=== PATIENT | female | born 1935 | race Caucasian/White ===

== ENCOUNTER 2020-12-25 10:39 | Outpatient (REF) | payer MEDICARE, MEDICAID, SELFPAY ==
--- NOTE | 2020-12-25 | XR_ITS ---
EXAMINATION: XR HIP, RIGHT XR HIP, LEFT CLINICAL INFORMATION: Bilateral hip pain COMPARISON: None TECHNIQUE: Each hip is imaged in AP and frog-lateral projections. There are total of 4 views. FINDINGS: Right: No fracture, dislocation, destructive process. There is some borderline spurring from the acetabulum but no focal joint narrowing or erosive change. No visible chondrocalcinosis. Visualized bony pelvis unremarkable. Left: No fracture, dislocation, destructive process. There is some borderline spurring from the acetabulum but no focal joint narrowing or erosive change. No visible chondrocalcinosis. Visualized bony pelvis unremarkable. XR/XR hip LT min 2V IMPRESSION: Mild bilateral acetabular spurring. No focal joint narrowing or erosive change.
--- NOTE | 2020-12-25 | XR_ITS ---
EXAMINATION: XR HIP, RIGHT XR HIP, LEFT CLINICAL INFORMATION: Bilateral hip pain COMPARISON: None TECHNIQUE: Each hip is imaged in AP and frog-lateral projections. There are total of 4 views. FINDINGS: Right: No fracture, dislocation, destructive process. There is some borderline spurring from the acetabulum but no focal joint narrowing or erosive change. No visible chondrocalcinosis. Visualized bony pelvis unremarkable. Left: No fracture, dislocation, destructive process. There is some borderline spurring from the acetabulum but no focal joint narrowing or erosive change. No visible chondrocalcinosis. Visualized bony pelvis unremarkable. XR/XR hip RT min 2V IMPRESSION: Mild bilateral acetabular spurring. No focal joint narrowing or erosive change.
== END 2020-12-25 10:40 | disposition home or self-care (01) ==
LOC: HO.XRAY 10:39
PROVIDERS: PCP Internal Medicine; Visit Provider Internal Medicine
DX: M25.552 Pain in left hip (principal); M25.551 Pain in right hip
CPT/HCPCS: 73502

== ENCOUNTER 2021-06-30 14:35 | Emergency (ER) | payer MEDICARE, MEDICAID, SELFPAY ==
--- NOTE | ~2021-06-30 | XR_ITS ---
EXAMINATION: XR CHEST CLINICAL INFORMATION: COVID pneumonia. Question left lower lobe. COMPARISON: 03/07/2019 TECHNIQUE: Frontal view of the chest was obtained. FINDINGS: Again seen is a large hiatal hernia which occupies much of the left lower hemithorax at the left lung base. Surrounding atelectasis is suspected. Sensitivity for superimposed consolidation in this region is limited. Additional atelectasis is present at the right lung base. No appreciable pneumothorax or pleural effusion. Cardiac and mediastinal contours are unchanged. 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 Chronic coarse mineralized densities are present in the upper abdomen, unchanged from prior. XR/XR chest 1V IMPRESSION: As in the prior study, the presence of a large hiatal hernia occupying the left hemithorax inferiorly limits assessment of the left lower lobe which is likely atelectatic at the base. Sensitivity for consolidation in this region is limited. No separate areas of consolidation. Additional atelectasis is present at the right lung base.
[2021-06-30 16:03] VITALS: BP 137/80; PULSE 105; RESP 18; TEMP 36.4; O2SAT 95; BMI 24.3
[2021-06-30 17:35] VITALS: BP 110/73; PULSE 103; TEMP 36.4; O2SAT 94
[2021-06-30 18:16] LABS: COVID-19 Test Positive (Negative); IDNOW Serial# 9DD0AD1C
[2021-06-30] MEDS: Azithromycin 500 MG TABLET PO (19:08)
[2021-06-30] MEDS: dexAMETHasone 6 MG TABLET PO (19:08)
--- NOTE | 2021-06-30 19:11 | ED_ITS ---
HPI - URI/Sore Throat General Chief Complaint: Upper Respiratory Symptoms Stated Complaint: weakness Time Seen by Provider: 06/30/21 18:33 Source: patient and family Mode of arrival: wheelchair Limitations: no limitations History of Present Illness HPI Narrative: Patient with no known lung issues in the past came for 4 days of cold symptoms body aches low-grade fever dry cough other family member sick with same symptoms patient not been vaccinated for COVID-19 denies any significant shortness of breath saturating 95% at room air had low-grade fever yesterday Related Data Previous Rx's Medication Instructions Recorded azithromycin 250 mg tablet 250 mg PO DAILY 4 Days #4 tab 06/30/21 (Zithromax) dexamethasone 6 mg tablet 6 mg PO DAILY #7 tab 06/30/21 (Decadron) Allergies Allergy/AdvReac Type Severity Reaction Status Date / Time No Known Allergies Allergy Verified 06/30/21 16:06 Review of Systems Review of Systems: Yes all other systems are reviewed and are negative [facility] Past Medical History Medical History Impaired gait and mobility Social History Social History Alcohol intake: never Patient Tobacco Use Status: Never used Tobacco Use of substances other than those prescribed or required for medical reasons: No Advance Directives: No Advance Directives Information Provided: Yes Physical Exam Vital Signs: Vital Signs: Last Vital Signs Temp 97.5 F 06/30/21 17:35 Pulse 103 H 06/30/21 17:35 Resp 18 06/30/21 16:03 BP 110/73 06/30/21 17:35 Pulse Ox 94 06/30/21 17:35 Body Mass Index 24.3 Appearance: Alert. Oriented X3. No acute distress. Eyes: PERRLA, ENT: Pharynx normal. Oral Mucosa moist Neck: Normal inspection. Neck supple. CVS: Normal heart rate and rhythm. Pulses normal. Respiratory: No respiratory distress. Equal air entry bilateral, no wheezing/rhonchi, few crackles at left lower base Abdomen: Soft and nontender. Bowel sounds are present, no mass palpable, no CVA tenderness Skin: Skin warm and dry. Normal skin color. Normal skin turgor. Extremities: No lower extremity edema. No calf tenderness Neuro: Oriented X 3. MDM - URI/Sore Throat Lab Data Attestation: I reviewed the patient's lab results. Labs: Lab Results 06/30/21 Range/Units 18:00 COVID-19 (BUFFY) Positive A (Negative) COVID-19 Clin Com See Note Discharge Plan Discharge Clinical Impression: COVID-19 virus infection Patient Disposition: Home, Self-Care Instructions: COVID-19 (Coronavirus Disease 2019) (ED) Additional Instructions: Care And cautions as advised Self isolation, Tylenol for pain and fever Medication as prescribed Report to the ER/PCP for better/increased shortness of breath Cuidados y precauciones seg?n lo recomendado. Autoaislamiento, Tylenol para el dolor y la fiebre. Medicaci?n seg?n lo prescrito Informe al ER / PCP para mejorar / aumentar la dificultad para respirar Prescriptions: New dexamethasone [Decadron] 6 mg tablet 6 mg PO DAILY Qty: 7 RF: 0 azithromycin [Zithromax] 250 mg tablet 250 mg PO DAILY 4 Days Qty: 4 RF: 0 Interventions: ED Discharge Assessment Last Done: 06/30/21 20:11 Discharge Date/Time: 06/30/21 20:12
== END 2021-06-30 20:12 | disposition home or self-care (01) ==
PROVIDERS: Emergency Provider Internal Medicine; PCP Internal Medicine
DX: U07.1 COVID-19 (principal); R50.9 Fever, unspecified; Z79.899 Other long term (current) drug therapy
CPT/HCPCS: 36415; 71045; 87635; 99284; J8540

== ENCOUNTER 2021-07-05 13:10 | Inpatient (IN) | payer MEDICARE, MEDICAID, SELFPAY ==
[2021-07-05] VITALS (14 sets, daily range): BP systolic 78–134; BP diastolic 0–80; PULSE 60–130; RESP 20–30; TEMP 36.9–37.9; O2SAT 81–100; BMI 21.4; BMI 19.5
--- NOTE | ~2021-07-05 | XR_ITS ---
EXAMINATION: XR CHEST CLINICAL INFORMATION: Right internal jugular central venous line placement COMPARISON: Same day at 7:32 PM TECHNIQUE: Frontal view of the chest was obtained. FINDINGS: There is been interval placement of a left internal jugular approach central venous catheter. The tip is poorly assessed due to overlap with the left chest pacemaker wires, however the tip is at least within the proximal to mid SVC. Multiple EKG leads project over the chest. Similar-appearing right lung consolidation and, to a lesser extent left mid to lower lung linear consolidation. No pleural effusion or pneumothorax. Heart size is normal. Large hiatal hernia. No acute osseous abnormality. XR/XR chest 1V IMPRESSION: LEFT internal jugular central venous catheter with tip at least at the mid to upper SVC. The tip does overlap with the pacemaker wires and exact placement is not clearly seen. Similar-appearing right greater than left airspace opacities.
--- NOTE | ~2021-07-05 | XR_ITS ---
EXAMINATION: XR CHEST CLINICAL INFORMATION: : Positive. Shortness of breath. COMPARISON: Chest 06/30/2021 TECHNIQUE: Frontal view of the chest was obtained. FINDINGS: Lungs are hypoexpanded with patchy atelectatic changes in the left lung base. The heart size and pulmonary vascularity are normal. There are prominent bilateral parahilar interstitial markings. No gross bony abnormality. There are pacer electrodes in right atrium and right ventricle. XR/XR chest 1V IMPRESSION: Hypoexpanded lungs with patchy left lower lobe atelectasis and/or infiltrate. There is mild bilateral parahilar prominent interstitial markings
--- NOTE | ~2021-07-05 | CT_ITS ---
EXAMINATION: CT ANGIOGRAM OF THE CHEST WITH CONTRAST (CT PULMONARY ANGIOGRAM FOR PE) CLINICAL INFORMATION: COVID positive, elevated D-dimer, evaluate for pulmonary embolism, pneumonia. COMPARISON: CXR from 01/26/2018 and 07/05/2021 TECHNIQUE: Prior to contrast administration, noncontrast localization images were obtained. Subsequently, multidetector volumetric imaging was performed from the thoracic inlet to below the diaphragms following the administration of 65 mL Omnipaque 350 intravenous contrast. No contrast reaction reported. Sagittal, coronal, and MIP oblique sagittal reformatted images were obtained on the CT workstation, uploaded to PACS, and reviewed. This CT examination was performed using dose optimization techniques as appropriate, variously including the following: *Automated exposure control *Adjustment of mA and/or kV according to patient size (this includes techniques or standardized protocols for targeted exams where dose is matched to indication/reason for exam; i.e. extremities or head) *Use of iterative reconstruction technique DLP: Total exam dose-length product 280 mGy-cm FINDINGS: LOCALIZER IMAGES: Findings include dual chamber cardiac pacemaker, large hiatal hernia, and multiple clustered gallstones in the right upper abdomen. LUNGS AND PLEURA: The left lower lobe and adjacent lingula are compressed by the large hiatal hernia. Patchy, streaky and groundglass opacities are scattered throughout both lungs. The findings are consistent with multilobar pneumonia. No pleural effusion or pneumothorax. QUALITY OF STUDY/CONTRAST BOLUS: Satisfactory. CARDIOVASCULAR: Main pulmonary artery is 3 cm transverse diameter, which is in the normal size range. No embolic filling defects in the main, lobar or segmental vessels. The heart size is normal. Mild atherosclerotic calcification of coronary arteries and thoracic aorta. The cardiac leads terminate within the lateral wall of the right atrium and wall of the right ventricle (near the ventricular apex). No aortic aneurysm or dissection. No pericardial effusion. MEDIASTINUM/LOWER NECK: Chronic, large hiatal hernia contains stomach and some of the transverse and descending colon.. Thyroid gland is atrophied. No mediastinal mass. LYMPHATICS: No pathologic sized axillary, hilar or mediastinal lymph nodes. UPPER ABDOMEN: No contrast reflux into the inferior vena cava. Gallbladder contains multiple stones. Splenic artery is calcified. 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 OSSEOUS STRUCTURES: No acute abnormalities in the visualized degenerated lower cervical and thoracic spine. No suspicious bone lesion. Chronic osteoarthritis of glenohumeral joints. There is calcific debris or chondrocalcinosis at the degenerated right glenohumeral joint. CT/CT angio chest PE protocol IMPRESSION: * No evidence of pulmonary embolism. * Findings are consistent with multilobar pneumonia. In a patient with history of Covid infection, this likely represents viral pneumonia. * Large hiatal hernia. * Cholelithiasis.
--- NOTE | ~2021-07-05 | XR_ITS ---
EXAMINATION: XR CHEST CLINICAL INFORMATION: New onset hypoxia. Jennifer trauma. Pneumothorax. COMPARISON: Most recent CTA chest dated 07/05/2021. TECHNIQUE: Frontal view of the chest was obtained. FINDINGS: Diffuse bilateral airspace opacities, right greater than left. Findings are similar when compared to the recent chest CT. Elevation of the left hemidiaphragm is redemonstrated. No pleural effusion or pneumothorax. Stable cardiomediastinal silhouette. Gallstones are redemonstrated. XR/XR chest 1V IMPRESSION: Bilateral airspace opacities, most prominent within the right upper lobe. Findings are similar when compared to the prior CT. Additional chronic findings are unchanged.
[2021-07-05] MEDS: 0.9 % Sodium Chloride 1,496.85 ML 1496.85 ML IVCONT (13:48)
--- NOTE | 2021-07-05 14:08 | PC.NURSE ---
pt was left alone for approx 2 min, upon return iv was removed and o2 was off, pt alert, denies removing, very anxious, 2nd iv placed and importance of medical care stressed
[2021-07-05 14:25] LABS: Basophils Percent Auto 0.1 % (0-2); Hematocrit 39.1 % (37-47); Hemoglobin 12.7 g/dl (12.0-16.0); Imm Gran Abs Auto 0.07 X10*3/uL (0.00-0.03); Imm Gran Pct Auto 0.6 % (0.0-0.4); Lymphocytes Absolute Auto 0.5 X10*3/uL (1.2-4.9); Lymphocytes Percent Auto 4.5 % (20-40); MANUAL DIFF FLAG SCAN; Mean Corpuscular HGB Conc 32.5 g/dl (31.0-35.0); Mean Corpuscular Hemoglobin 28.4 pg (27.0-33.0); Mean Corpuscular Volume 87.5 fL (80-98); Mean Platelet Volume 10.3 fL (9.4-12.3); Monocytes Absolute Auto 0.2 X10*3/uL (0.1-1.2); Neutrophils Absolute Auto 10.2 X10*3/uL (2.0-8.3); Neutrophils Percent Auto 92.8 % (45-73); Platelet Count 262 X10*3/uL (160-400); Red Blood Count 4.47 X10*6/uL (4.20-5.50); Red Cell Distribution Width 14.8 % (11.0-16.0); SCAN SMEAR FLAG 1
[2021-07-05 14:32] LABS: INTERNATIONAL NORM RATIO 1.3 (0.9-1.1); Prothrombin Time 14.7 SEC (9.9-13.0)
[2021-07-05 14:35] LABS: Partial Thromboplastin Time 28.2 SEC (24.1-38.0)
[2021-07-05 14:46] LABS: SLIDE REVIEW VERIFIED
[2021-07-05 14:54] LABS: Alanine Aminotransferase 48 U/L (0-31); Albumin Level 3.4 g/dL (3.5-5.0); Alkaline Phosphatase 58 U/L (39-117); Anion Gap 17 (12-20); Aspartate Amino Transferase 79 U/L (5-31); Bilirubin Direct 0.3 mg/dL (0.0-0.5); Bilirubin Total 0.5 mg/dL (0.0-1.0); Blood Urea Nitrogen 18 mg/dL (9-16); Calcium 7.5 mg/dL (8.4-10.2); Carbon Dioxide 21 mmol/L (22-29); Chloride 102 mmol/L (96-108); Creatinine Clr Calc Pharmacy 34.1; Estimated Glomerular Filt Rate > 60; Glucose Random 208 mg/dL (60-115); Potassium 4.3 mmol/L (3.3-5.1); Sodium 136 mmol/L (135-145); Total Protein 6.6 g/dL (6.5-8.0)
[2021-07-05 15:00] LABS: Lactic Acid 3.5 mmol/L (0.5-2.0)
--- NOTE | 2021-07-05 16:04 | PC.NURSE ---
Flow increased, pt sob, 88% prior to increase. Md notified. RT to reeval.
--- NOTE | 2021-07-05 16:14 | ED.GENADULT ---
HPI - General Adult General Chief complaint: Upper Respiratory Symptoms Stated complaint: COVID + Weakness Time Seen by Provider: 07/05/21 13:34 Source: patient Mode of arrival: EMS Limitations: language barrier (German speaking only) History of Present Illness HPI narrative: 86-year-old female who presents emergency department for evaluation of increasing shortness of breath, dyspnea on exertion and cough. The patient was seen in the emergency department on 06/30/2021 for cold-like symptoms for 4 days which included body aches, low-grade fever, dry cough. Other family members was 6 with the same symptoms. The patient had not been vaccinated for COVID-19. The patient was diagnosed with COVID-19 infection and started on Zithromax and dexamethasone. The patient's symptoms got worse today. An ambulance was called and the paramedics found the patient to be hypoxic with an O2 saturation of 81% on room air. She was placed on 100% non-rebreather mask and her O2 saturation improved to 94%. Related Data Previous Rx's Medication Instructions Recorded azithromycin 250 mg tablet 250 mg PO DAILY 4 Days #4 tab 06/30/21 (Zithromax) dexamethasone 6 mg tablet 6 mg PO DAILY #7 tab 06/30/21 (Decadron) Allergies Allergy/AdvReac Type Severity Reaction Status Date / Time No Known Allergies Allergy Verified 06/30/21 16:06 Review of Systems Review of Systems: Yes all other systems are reviewed and are negative [facility] Past Medical History [facility] Narrative: Past medical history: None. Past surgical history: . Social history: She denies tobacco, alcohol or drug use. Medical History Impaired gait and mobility Social History Social History Alcohol intake: never Patient Tobacco Use Status: Never used Tobacco Advance Directives: No Advance Directives Information Provided: No Physical Exam Vital Signs: Vital Signs: Last Vital Signs Temp 100.2 F 07/05/21 16:00 Pulse 103 H 07/05/21 16:00 Resp 24 H 07/05/21 16:00 BP 134/72 07/05/21 16:00 Pulse Ox 89 L 07/05/21 16:00 Oxygen Flow Rate 60 07/05/21 16:00 Body Mass Index 21.4 Const: Other: Elderly female, appears to be very anxious, in moderate respiratory distress with tachypnea and using accessory muscles to breathe HENMT: Head: Yes normal to inspection, Yes normocephalic and Yes atraumatic Ears: external ears normal General nose exam: Normal external nose present Face and sinus: Yes normal facial exam Mouth: Normal oral and palatal mucosa present Throat: Yes posterior oropharynx normal Eyes: General: appearance normal, both eyes and all related structures Pupils: Equal, round and reactive pupils present Neck: Neck: Yes normal visual inspection, Yes no lymphadenopathy, Yes trachea midline and Yes supple Chest: Chest palpation & inspection: normal inspection of the chest and normal palpation of entire chest wall Resp: Other: Patient is tachypneic, using respiratory muscles to breathe, lungs were clear, breath sounds symmetric bilaterally Cardio: Rate: regular rate Rhythm: regular rhythm Heart sounds: S1 normal heart sound present, S2 normal heart sound present and no murmurs GI: Inspection: Yes normal to inspection Palpation (GI): Soft to palpation, nontender and no guarding Auscultation: normal bowel sounds : General: Yes no CVA tenderness Back/Spine/Pelvis: Back: no CVA tenderness Skin: General skin exam: no rashes or lesions noted Neuro: Cranial nerves: Yes CN's II-XII intact bilaterally and Yes Equal, round and reactive pupils present Cognition (Neuro): normal cognition Motor exam (neuro): 5/5 motor strength present throughout Extrem: General: Yes normal to inspection Psych: Appearance: grossly normal Speech and movement: Normal speech and movement present Affect: Anxious affect present Thought content: Normal thought content present Course Course Course Narrative: 86-year-old female who was seen in the emergency department on 06/30/2021 for cold-like symptoms x4 days, she was COVID positive. She was treated with Zithromax Z-Christophe and dexamethasone 6 mg once a day for 5 days. The patient's symptoms got worse. Paramedics found the patient to be hypoxic with an O2 saturation of 81% on room air. On 100% non-rebreather mask, the patient's O2 saturations did improve however on presentation she appeared to be very tachypneic and was using respiratory muscles to breathe. Patient's vital signs did reveal low-grade fever 100.2, she was tachycardic with a pulse of 103 and tachypneic with a respiratory 24. Her O2 saturation on 100% non-rebreather was 89%. I ordered a laboratory evaluation, chest x-ray and high-flow oxygen via nasal cannula. 1620: The patient's laboratory evaluation revealed a normal CBC. Patient has elevated lactic acid of 3.5. AST and ALT were elevated at 79 and 48. The chest x-ray was interpreted as follows:Hypoexpanded lungs with patchy left lower lobe atelectasis and/orinfiltrate. There is mild bilateral parahilar prominent interstitial markings. This is consistent with a viral COVID-19 pneumonia. Patient was given a fluid bolus,. The patient initially improved with high-flow oxygen via nasal cannula at 100% and flow of 60 liters/minute. Patient however became hypoxic and 100% non-rebreather mask was also added. I did talk to the patient using the executive administrator and she states that she does not want to be intubated and she does not want be on a ventilator. 1704: I did discuss the patient's presentation with the covering phlebotomist associate accepted the patient into the ICU. He requested a CT scan PE protocol to rule out pulmonary embolism versus pneumonia as the cause of her worsening hypoxia. I also discussed the patient's condition with her daughter, Indigo Gonzales and she is aware the critical condition that her grandmother is in. Medical Decision Making Lab Data Result diagrams: 07/05/21 14:16 07/05/21 14:16 Labs: Lab Results 07/05/21 07/05/21 07/05/21 Range/Units 14:15 14:15 14:16 WBC 11.0 H (4.8-10.8) X10*3/uL RBC 4.47 (4.20-5.50) X10*6/uL Hgb 12.7 (12.0-16.0) g/dl Hct 39.1 (37-47) % MCV 87.5 (80-98) fL MCH 28.4 (27.0-33.0) pg MCHC 32.5 (31.0-35.0) g/dl RDW 14.8 (11.0-16.0) % Plt Count 262 (160-400) X10*3/uL MPV 10.3 (9.4-12.3) fL Immature Gran % (Auto) 0.6 H (0.0-0.4) % Neut % (Auto) 92.8 H (45-73) % Lymph % (Auto) 4.5 L (20-40) % [place] % (Auto) 2.0 (2-11) % Eos % (Auto) 0.0 (0-4) % Baso % (Auto) 0.1 (0-2) % Lymph # (Auto) 0.5 L (1.2-4.9) X10*3/uL [place] # (Auto) 0.2 (0.1-1.2) X10*3/uL Eos # (Auto) 0.0 (0.0-0.4) X10*3/uL Baso # (Auto) 0.0 (0.0-0.2) X10*3/uL Abs Immat Gran (auto) 0.07 H (0.00-0.03) X10*3/uL Absolute Neuts (auto) 10.2 H (2.0-8.3) X10*3/uL Absolute Nucleated RBC 0.000 (0.0-0.012) X10*3/uL Nucleated RBC % (auto) 0.0 (0.0-0.2) /100WBC Smear Tech's Comments VERIFIED PT 14.7 H (9.9-13.0) SEC INR 1.3 H (0.9-1.1) APTT 28.2 (24.1-38.0) SEC D-Dimer 2393 NG/ML Sodium (135-145) mmol/L Potassium (3.3-5.1) mmol/L Chloride (96-108) mmol/L Carbon Dioxide (22-29) mmol/L Anion Gap (12-20) BUN (9-16) mg/dL Creatinine (0.5-1.4) mg/dL Estim Creat Clear Calc Estimated GFR Random Glucose (60-115) mg/dL Lactic Acid (0.5-2.0) mmol/L Calcium (8.4-10.2) mg/dL Ferritin (10-250) ng/mL Total Bilirubin (0.0-1.0) mg/dL Direct Bilirubin (0.0-0.5) mg/dL AST (5-31) U/L ALT (0-31) U/L Alkaline Phosphatase (39-117) U/L Lactate Dehydrogenase (122-220) U/L Total Protein (6.5-8.0) g/dL Albumin (3.5-5.0) g/dL Procalcitonin 0.25 ng/mL 07/05/21 07/05/21 Range/Units 14:16 14:16 WBC (4.8-10.8) X10*3/uL RBC (4.20-5.50) X10*6/uL Hgb (12.0-16.0) g/dl Hct (37-47) % MCV (80-98) fL MCH (27.0-33.0) pg MCHC (31.0-35.0) g/dl RDW (11.0-16.0) % Plt Count (160-400) X10*3/uL MPV (9.4-12.3) fL Immature Gran % (Auto) (0.0-0.4) % Neut % (Auto) (45-73) % Lymph % (Auto) (20-40) % [place] % (Auto) (2-11) % Eos % (Auto) (0-4) % Baso % (Auto) (0-2) % Lymph # (Auto) (1.2-4.9) X10*3/uL [place] # (Auto) (0.1-1.2) X10*3/uL Eos # (Auto) (0.0-0.4) X10*3/uL Baso # (Auto) (0.0-0.2) X10*3/uL Abs Immat Gran (auto) (0.00-0.03) X10*3/uL Absolute Neuts (auto) (2.0-8.3) X10*3/uL Absolute Nucleated RBC (0.0-0.012) X10*3/uL Nucleated RBC % (auto) (0.0-0.2) /100WBC Smear Tech's Comments PT (9.9-13.0) SEC INR (0.9-1.1) APTT (24.1-38.0) SEC D-Dimer NG/ML Sodium 136 (135-145) mmol/L Potassium 4.3 (3.3-5.1) mmol/L Chloride 102 (96-108) mmol/L Carbon Dioxide 21 L (22-29) mmol/L Anion Gap 17 (12-20) BUN 18 H (9-16) mg/dL Creatinine 0.85 (0.5-1.4) mg/dL Estim Creat Clear Calc 34.1 Estimated GFR > 60 Random Glucose 208 H (60-115) mg/dL Lactic Acid 3.5 H* (0.5-2.0) mmol/L Calcium 7.5 L (8.4-10.2) mg/dL Ferritin 1267 H (10-250) ng/mL Total Bilirubin 0.5 (0.0-1.0) mg/dL Direct Bilirubin 0.3 (0.0-0.5) mg/dL AST 79 H (5-31) U/L ALT 48 H (0-31) U/L Alkaline Phosphatase 58 (39-117) U/L Lactate Dehydrogenase 433 H (122-220) U/L Total Protein 6.6 (6.5-8.0) g/dL Albumin 3.4 L (3.5-5.0) g/dL Procalcitonin ng/mL Critical Care Time Critical Care Time Critical Care Time: Yes Total Critical Care Time: 80 Attestation: Critical Care: The patient was critically ill with a high probability of imminent or life threatening deterioration. I spent greater than 30 minutes of discontinuous time evaluating the patient,delivering critical care at the bedside, discussing and evaluating pertinent data with consultants. Critical care time does not include time spent performing separately billable procedures or teaching. Total time spent performing critical care was 80 minutes. Discharge Plan Discharge Patient Disposition: Admitted As Inpatient Prescriptions: No Action dexamethasone [Decadron] 6 mg tablet 6 mg PO DAILY Qty: 7 RF: 0 azithromycin [Zithromax] 250 mg tablet 250 mg PO DAILY 4 Days Qty: 4 RF: 0
[2021-07-05 16:23] LABS: Reflex Lactate? Lactic Acid Added
--- NOTE | 2021-07-05 16:34 | PC.NURSE ---
Pt repositioned to side per rt with assistance of . Pt on highflow, with nonreb. Pt stated no intubating to support respiratory status.
[2021-07-05 16:37] LABS: D Dimer 2393 NG/ML
[2021-07-05 16:40] LABS: Lactate Dehydrogenase 433 U/L (122-220)
[2021-07-05] MEDS: dexAMETHasone sod phosphate 4 MG/ML VIAL 6 MG IVPUSH (16:45)
[2021-07-05 16:59] LABS: Ferritin 1267 ng/mL (10-250)
[2021-07-05 17:06] LABS: Procalcitonin 0.25 ng/mL
--- NOTE | 2021-07-05 17:08 | PC.NURSE ---
plan to admit to icu, dnr/dni status confirmed by neela.
[2021-07-05 17:39] LABS: ~Lactic Acid-LAB USE ONLY 1.3 mmol/L (0.5-2.0)
[2021-07-05 17:49] LABS: B Type Natriuretic Peptide 209 pg/mL (<100)
[2021-07-05] MEDS: iohexoL 350 MG/ML 100 ML INFUS..BTL IV (18:35)
[2021-07-05] MEDS: Heparin Sodium,Porcine 5,000 UNIT/ML VIAL 5000 UNIT SUBCUT (18:42)
--- NOTE | 2021-07-05 19:32 | PC.NURSE ---
PT ARRIVED TO UNIT AT 1830. HIGH SCHOOL COUNSELOR USED FOR ASSESSMENT. PT ALERT TO SELF, VAGUE TO DATE, DID NOT KNOW WHERE SHE WAS OR WHY SHE WAS HERE. ABLE TO ANSWER MOST ADMISSION QUESTIONS. PT NOTED TO BE ANXIOUS AND SCARED TO BE ALONE. PT ABLE TO FACETIME WITH GRANDDAUGHTER. AFEBRILE, VSS, ON HIGH FLOW 55L/100% WITH SAT OF 99%. VPACED ON TELE. PT INCONTINENT OF URINE UPON ADMISSION. PANTS AND UNDERWEAR REMOVED AND A PRESSURE INJURY TO LEFT BUTTOCK NOTED. PICTURES OBTAINED, UNABLE TO MEASURE AT THIS TIME - PASSED ALONG TO ONCOMING RN. RECONFIRMED DNR/DNI STATUS WITH PRODUCE ASSOCIATE.
--- NOTE | 2021-07-05 20:07 | P.HPCC_ITS ---
History of Present Illness Date of Service: 07/05/21 Chief Complaint: Dyspnea 86-year-old? indonesian speaking only female with past medical history of Crohn's disease, history of complete heart block status post pacemaker, history of deep venous thrombosis not on any chronic medications presented to the emergency room with complaint of dyspnea, cough, and subjective fever. She was recently diagnosed with COVID-19 infection on 06/30/21 in ED and started on Zithromax and dexamethasone. Patient One daughter reports patient?s symptoms got worse today,? becoming? more short of breath.? Per EMS patient was hypoxic with saturation in 81% on room air.? She was placed on 100% non-rebreather mask. ? In the emergency room,? patient was tried to be weaned off from oxygen but continued to be hypoxic in the 80s required high-flow oxygen.? ?Laboratory data significant for ? WBC 11, lymphocytes 4.5,? lactic acid 3.5,? D-dimer of 2393, ? calcium 3.5, ? AST 79, ALT 48,? LDH 433, BNP 209, albumin 3.4 Imaging:? Chest CTA:? No evidence of pulmonary embolism. Multilobar pneumonia noted?? ?Patient will be admitted to the ICU for hypoxic respiratory failure related to COVID pneumonia with possible requirement of? noninvasive ventilation Review of Systems Review of Systems: Constitutional: + fever, +chills,+ fatigue. No weakness Eyes: No visual loss, blurred vision, double vision or yellow sclera ENT: + congestion, runny nose and sore throat. No hearing loss Respiratory: + shortness of breath with exertion, cough. No sputum production. Cardiovascular: No chest pain, chest pressure or chest discomfort. No palpitations or pedal edema. Gastrointestinal: No nausea, vomiting, diarrhea. No abdominal pain or blood in stool. Genitourinary: No burning micturition. No urinary frequency or incontinence. Neurologic: No headache, dizziness, syncope, unilateral weakness, ataxia, numbness or tingling in the extremities. No change in bowel or bladder control. Musculoskeletal: No muscle pain, back pain, joint pain or stiffness. Hematologic/Lymphatics: No bleeding or bruising. No painful lymph nodes. Skin: No rash or itching. Endocrine: No cold or heat intolerance. No polyuria or polydipsia. Psychiatric: No depression or anxiety. [facility] Past Medical History Medical History (Updated 07/05/21 @ 20:17 by Sheba Quigley NP) Complete heart block Crohn's disease DVT (deep venous thrombosis) Impaired gait and mobility Pacemaker Functional capacity: uses cane/walker Family History Family history: reviewed and not pertinent Social History Social History (Updated 07/05/21 @ 20:13 by Sheba Quigley NP) Household Members: Family Household Members Other:: Lives with granddaughter Housing: House Do you presently have visiting nurse or other home services: No Alcohol intake: never Patient Tobacco Use Status: Never used Tobacco Use of substances other than those prescribed or required for medical reasons: No Advance Directives: No Advance Directives Information Provided: No Do you have thoughts of harming others: None Do you have a plan to hurt others: No Plan Recently lost weight without trying: Unsure Nutrition Risks: On aspiration precautions and Poor intake 0-25% >4 days Patient : No : No Poor oral hygiene: No Meds Allergies Allergy/AdvReac Type Severity Reaction Status Date / Time No Known Allergies Allergy Verified 06/30/21 16:06 Active Medications: Current Medications Generic Name Dose Route Start Last Admin Trade Name Freq PRN Reason Stop Dose Admin Acetaminophen 650 mg 07/05/21 16:57 Acetaminophen 325 Mg Tablet PO Q6H PRN Fever Heparin Sodium (Porcine) 5,000 unit 07/05/21 17:00 07/05/21 18:42 Heparin Sodium,Porcine 5,000 Unit/Ml Vial SUBCUT 5,000 unit Q8H DARION Administration Physical Exam Vital Signs: Vital Signs: Last Vital Signs Temp 98.4 F 07/05/21 19:00 Pulse 86 07/05/21 19:00 Resp 22 H 07/05/21 19:51 BP 105/63 07/05/21 19:00 Pulse Ox 98 07/05/21 19:00 Oxygen Flow Rate 60 07/05/21 16:00 Body Mass Index 19.5 Constitutional: Alert, in no distress. Mental Status: Oriented to person, place and time. Head: Normocephalic. Eyes: Pupils are equal, round and reactive to light. Extraocular muscles intact. Ear, Nose and Throat: Oropharynx clear, mucous membranes moist. Ears and nose without masses, lesions or deformities. Trachea midline. Neck: Supple, Full range of motion. Respiratory: Lungs diminished throughout.?Satting 94% on high flow. No wheezing. Cardiovascular: S1 S2 regular. No murmurs, rubs or gallops. Gastrointestinal: Abdomen soft, non-tender, non-distended. Normal bowel sounds. No pulsatile mass. No hepatosplenomegaly. Genitourinary: No costovertebral angle tenderness. Neurologic: Cranial nerves II-XII grossly intact. No focal neurological deficits. Musculoskeletal: No cyanosis or clubbing. No gross deformities. Normal range of motion. Psychiatric: Normal mood and affect Results Labs CBC and Chem 7: 07/05/21 14:16 07/05/21 14:16 Labs: Laboratory Results - last 24 hr 07/05/21 07/05/21 07/05/21 14:15 14:15 14:16 MCV 87.5 MCH 28.4 MCHC 32.5 RDW 14.8 Plt Count 262 MPV 10.3 Immature Gran % (Auto) 0.6 H Neut % (Auto) 92.8 H Lymph % (Auto) 4.5 L [place] % (Auto) 2.0 Eos % (Auto) 0.0 Baso % (Auto) 0.1 Lymph # (Auto) 0.5 L [place] # (Auto) 0.2 Eos # (Auto) 0.0 Baso # (Auto) 0.0 Abs Immat Gran (auto) 0.07 H Absolute Neuts (auto) 10.2 H Absolute Nucleated RBC 0.000 Nucleated RBC % (auto) 0.0 Smear Tech's Comments VERIFIED PT 14.7 H INR 1.3 H APTT 28.2 D-Dimer 2393 Anion Gap Estim Creat Clear Calc Estimated GFR Random Glucose Lactic Acid Lactic Acid Fup @ 2Hr Calcium Ferritin Total Bilirubin Direct Bilirubin AST ALT Alkaline Phosphatase Lactate Dehydrogenase B-Natriuretic Peptide Total Protein Albumin Procalcitonin 0.25 07/05/21 07/05/21 07/05/21 14:16 14:16 17:18 MCV MCH MCHC RDW Plt Count MPV Immature Gran % (Auto) Neut % (Auto) Lymph % (Auto) [place] % (Auto) Eos % (Auto) Baso % (Auto) Lymph # (Auto) [place] # (Auto) Eos # (Auto) Baso # (Auto) Abs Immat Gran (auto) Absolute Neuts (auto) Absolute Nucleated RBC Nucleated RBC % (auto) Smear Tech's Comments PT INR APTT D-Dimer Anion Gap 17 Estim Creat Clear Calc 34.1 Estimated GFR > 60 Random Glucose 208 H Lactic Acid 3.5 H* Lactic Acid Fup @ 2Hr 1.3 Calcium 7.5 L Ferritin 1267 H Total Bilirubin 0.5 Direct Bilirubin 0.3 AST 79 H ALT 48 H Alkaline Phosphatase 58 Lactate Dehydrogenase 433 H B-Natriuretic Peptide Total Protein 6.6 Albumin 3.4 L Procalcitonin 07/05/21 17:18 MCV MCH MCHC RDW Plt Count MPV Immature Gran % (Auto) Neut % (Auto) Lymph % (Auto) [place] % (Auto) Eos % (Auto) Baso % (Auto) Lymph # (Auto) [place] # (Auto) Eos # (Auto) Baso # (Auto) Abs Immat Gran (auto) Absolute Neuts (auto) Absolute Nucleated RBC Nucleated RBC % (auto) Smear Tech's Comments PT INR APTT D-Dimer Anion Gap Estim Creat Clear Calc Estimated GFR Random Glucose Lactic Acid Lactic Acid Fup @ 2Hr Calcium Ferritin Total Bilirubin Direct Bilirubin AST ALT Alkaline Phosphatase Lactate Dehydrogenase B-Natriuretic Peptide 209 H Total Protein Albumin Procalcitonin Imaging Radiologist's Impressions: Impressions Chest X-Ray 07/05/21 13:34 IMPRESSION: Hypoexpanded lungs with patchy left lower lobe atelectasis and/or infiltrate. There is mild bilateral parahilar prominent interstitial markings Chest CTA 07/05/21 17:01 IMPRESSION: * No evidence of pulmonary embolism. * Findings are consistent with multilobar pneumonia. In a patient with history of Covid infection, this likely represents viral pneumonia. * Large hiatal hernia. * Cholelithiasis. Assessment and Plan (1) COVID-19 virus infection: Status: Acute ?86-year-old recently diagnosed with COVID pneumonia, and started on dexamethasone and azithromycin? now worsening hypoxia required ICU admission Plan: Neuro:? No acute issues.?? Cardiac:Elevated lactic,? likely related to COVID-19 infection.? No evidence of severe septic shock as the patient's vital signs are stable. ? Will continue to closely monitor.?? Pulmonary:? ?Acute respiratory failure related to COVID pneumonia:? ?patient started developing cold symptoms on 06/26/2021? and recently diagnosed with COVID-19 on? 06/30/21.? Now presenting to the emergency? with high acute hypoxic respiratory failure ? Required high-flow oxygen. ? Will continue dexamethasone.? We will try to wean off? FiO2 as tolerated Renal:? ? MARCOS non oliguric - she has a slightly elevated creatinine, most likely fluid deficiency related.? Will continue to monitor? renal indices.? Endo: ? ? no acute issues GI: ? No acute issues ID: ? leukocytosis with? lymphocytopenia:? this is likely related to COVID-19 infection.? No need for antibiotics at this time.? Heme/Onc:? No acute issues. Psych:? No acute issues. Miscellaneous:? No acute issues. Prophylaxis: ? Heparin,? no GI prophylaxis at this time Diet:? ? Regular diet? ?Code status:? code status addressed with patient in as well as granddaughter misael,? DNR DNI confirmed ?Critical care time:? time 60 minutes of critical care time? ?Case discussed with attending (2) Acute respiratory failure with hypoxia: Status: Acute (3) MARCOS (acute kidney injury): Status: Acute (4) Pneumonia due to COVID-19 virus: Status: Acute
[2021-07-05] MEDS: Albumin Human 25 % 100 ML IV (21:26)
[2021-07-06] VITALS (31 sets, daily range): BP systolic 81–148; BP diastolic 46–72; PULSE 60–91; RESP 16–34; TEMP 35.8–36.4; O2SAT 90–97; BMI 19.5
[2021-07-06] MEDS: Heparin Sodium,Porcine 5,000 UNIT/ML VIAL 5000 UNIT SUBCUT ×3 (00:46→16:02)
--- NOTE | 2021-07-06 02:16 | PC.NURSE ---
Pt alert and follows commands. On high flow O2 which was able to be decreased from 100%/55L to 50%/35L. Slight shortness of breath with repositioning. Lungs dim. Afebrile. Monitor shows V paced rhythm, rate 60, occ AV paced. SBP low, down to 78. Albumin ordered and given. Bp remains low but will come up with stimulation. Provider Sheba RAMIREZ aware and goal is for MAP>50. Pt has 2 cm X 0.5 cm pressure injury to left buttocks. Turned and repos q2h. Barrier cream applied. Purewick in place and draining yellow urine.
[2021-07-06 05:35] LABS: VBG Base Excess -2.1 mmol/L; VBG HCO3 21 mmol/L (22-26); VBG pCO2 32 mmHg; VBG pH 7.42 (7.32-7.43); VBG pO2 38 mmHg
[2021-07-06 05:43] LABS: MANUAL DIFF FLAG NO
[2021-07-06] MEDS: Acetaminophen 325 MG TABLET 650 MG PO ×2 (05:43→20:18)
[2021-07-06 05:46] LABS: Hematocrit 37.2 % (37-47); Hemoglobin 11.7 g/dl (12.0-16.0); Imm Gran Abs Auto 0.03 X10*3/uL (0.00-0.03); Imm Gran Pct Auto 0.6 % (0.0-0.4); Lymphocytes Absolute Auto 0.9 X10*3/uL (1.2-4.9); Lymphocytes Percent Auto 17.3 % (20-40); Mean Corpuscular HGB Conc 31.5 g/dl (31.0-35.0); Mean Corpuscular Hemoglobin 27.8 pg (27.0-33.0); Mean Corpuscular Volume 88.4 fL (80-98); Mean Platelet Volume 10.4 fL (9.4-12.3); Monocytes Absolute Auto 0.2 X10*3/uL (0.1-1.2); Monocytes Percent Auto 4.6 % (2-11); Neutrophils Absolute Auto 4.1 X10*3/uL (2.0-8.3); Neutrophils Percent Auto 77.5 % (45-73); Platelet Count 247 X10*3/uL (160-400); Red Blood Count 4.21 X10*6/uL (4.20-5.50); Red Cell Distribution Width 14.7 % (11.0-16.0); White Blood Count 5.3 X10*3/uL (4.8-10.8)
[2021-07-06 06:12] LABS: Anion Gap 17 (12-20); Blood Urea Nitrogen 19 mg/dL (9-16); Calcium 7.9 mg/dL (8.4-10.2); Carbon Dioxide 20 mmol/L (22-29); Chloride 105 mmol/L (96-108); Creatinine Clr Calc Pharmacy 43.2; Estimated Glomerular Filt Rate > 60; Glucose Random 109 mg/dL (60-115); Magnesium 1.9 mg/dL (1.6-2.6); Phosphorus 3.7 mg/dL (2.7-4.5); Potassium 4.2 mmol/L (3.3-5.1); Sodium 138 mmol/L (135-145)
[2021-07-06 06:18] LABS: Venous Blood Gas Refer to POC result
[2021-07-06] MEDS: dexAMETHasone sod phosphate 4 MG/ML VIAL 6 MG IVPUSH (08:53)
--- NOTE | 2021-07-06 10:40 | P.PNCC_ITS ---
Subjective Subjective Date of Service: 07/06/21 Interval History: 86-year-old lady with underlying history of Crohn's disease, complete heart block status post ppm, remote DVT currently not on anticoagulation, COVID positive on 06/30/2021 required admission on 07/05/2021 for acute hypoxic respiratory failure requiring high-flow nasal cannula support. Patient admitted intensive care unit for close monitoring. Treated with dexamethasone. No events overnight. FiO2 requirements improved slightly. Critical Care Time (minutes): 45 Physical Exam Vital Signs: Vital Signs: Last Vital Signs Temp 96.8 F 07/06/21 09:00 Pulse 67 07/06/21 10:00 Resp 30 H 07/06/21 10:00 BP 86/50 L 07/06/21 09:00 Pulse Ox 94 07/06/21 10:00 Oxygen Flow Rate 60 07/05/21 16:00 Body Mass Index 19.5 Const: General: no acute distress, alert and awake Eyes: Sclerae: sclerae normal EOM: EOMs intact bilaterally Neck: Neck: Yes no lymphadenopathy, Yes trachea midline and Yes supple Resp: Effort & Inspection: normal respiratory effort and no respiratory distress Auscultation: clear to auscultation bilaterally Cardio: Rate: regular rate Rhythm: regular rhythm Heart sounds: no gallops, no murmurs and no rubs GI: Palpation (GI): Soft to palpation and Other GI palpation findings present ( Nontender) Auscultation: normal bowel sounds Extrem: General: Yes no pedal edema, No clubbing and No cyanosis Objective Data Labs CBC & Chem 7: 07/06/21 05:30 07/06/21 05:30 Labs: Laboratory Results - last 24 hr 07/05/21 07/05/21 07/05/21 14:15 14:15 14:16 WBC 11.0 H RBC 4.47 Hgb 12.7 Hct 39.1 MCV 87.5 MCH 28.4 MCHC 32.5 RDW 14.8 Plt Count 262 MPV 10.3 Immature Gran % (Auto) 0.6 H Neut % (Auto) 92.8 H Lymph % (Auto) 4.5 L [place] % (Auto) 2.0 Eos % (Auto) 0.0 Baso % (Auto) 0.1 Lymph # (Auto) 0.5 L [place] # (Auto) 0.2 Eos # (Auto) 0.0 Baso # (Auto) 0.0 Abs Immat Gran (auto) 0.07 H Absolute Neuts (auto) 10.2 H Absolute Nucleated RBC 0.000 Nucleated RBC % (auto) 0.0 Smear Tech's Comments VERIFIED PT 14.7 H INR 1.3 H APTT 28.2 D-Dimer 2393 VBG pH VBG pCO2 VBG pO2 VBG HCO3 VBG O2 Saturation VBG Base Excess Sodium Potassium Chloride Carbon Dioxide Anion Gap BUN Creatinine Estim Creat Clear Calc Estimated GFR Random Glucose Lactic Acid Lactic Acid Fup @ 2Hr Calcium Phosphorus Magnesium Ferritin Total Bilirubin Direct Bilirubin AST ALT Alkaline Phosphatase Lactate Dehydrogenase B-Natriuretic Peptide Total Protein Albumin Procalcitonin 0.25 07/05/21 07/05/21 07/05/21 14:16 14:16 17:18 WBC RBC Hgb Hct MCV MCH MCHC RDW Plt Count MPV Immature Gran % (Auto) Neut % (Auto) Lymph % (Auto) [place] % (Auto) Eos % (Auto) Baso % (Auto) Lymph # (Auto) [place] # (Auto) Eos # (Auto) Baso # (Auto) Abs Immat Gran (auto) Absolute Neuts (auto) Absolute Nucleated RBC Nucleated RBC % (auto) Smear Tech's Comments PT INR APTT D-Dimer VBG pH VBG pCO2 VBG pO2 VBG HCO3 VBG O2 Saturation VBG Base Excess Sodium 136 Potassium 4.3 Chloride 102 Carbon Dioxide 21 L Anion Gap 17 BUN 18 H Creatinine 0.85 Estim Creat Clear Calc 34.1 Estimated GFR > 60 Random Glucose 208 H Lactic Acid 3.5 H* Lactic Acid Fup @ 2Hr 1.3 Calcium 7.5 L Phosphorus Magnesium Ferritin 1267 H Total Bilirubin 0.5 Direct Bilirubin 0.3 AST 79 H ALT 48 H Alkaline Phosphatase 58 Lactate Dehydrogenase 433 H B-Natriuretic Peptide Total Protein 6.6 Albumin 3.4 L Procalcitonin 07/05/21 07/06/21 07/06/21 17:18 05:27 05:30 WBC 5.3 RBC 4.21 Hgb 11.7 L Hct 37.2 MCV 88.4 MCH 27.8 MCHC 31.5 RDW 14.7 Plt Count 247 MPV 10.4 Immature Gran % (Auto) 0.6 H Neut % (Auto) 77.5 H Lymph % (Auto) 17.3 L [place] % (Auto) 4.6 Eos % (Auto) 0.0 Baso % (Auto) 0.0 Lymph # (Auto) 0.9 L [place] # (Auto) 0.2 Eos # (Auto) 0.0 Baso # (Auto) 0.0 Abs Immat Gran (auto) 0.03 Absolute Neuts (auto) 4.1 Absolute Nucleated RBC 0.000 Nucleated RBC % (auto) 0.0 Smear Tech's Comments PT INR APTT D-Dimer VBG pH 7.42 VBG pCO2 32 VBG pO2 38 VBG HCO3 21 L VBG O2 Saturation 61.0 VBG Base Excess -2.1 Sodium Potassium Chloride Carbon Dioxide Anion Gap BUN Creatinine Estim Creat Clear Calc Estimated GFR Random Glucose Lactic Acid Lactic Acid Fup @ 2Hr Calcium Phosphorus Magnesium Ferritin Total Bilirubin Direct Bilirubin AST ALT Alkaline Phosphatase Lactate Dehydrogenase B-Natriuretic Peptide 209 H Total Protein Albumin Procalcitonin 07/06/21 05:30 WBC RBC Hgb Hct MCV MCH MCHC RDW Plt Count MPV Immature Gran % (Auto) Neut % (Auto) Lymph % (Auto) [place] % (Auto) Eos % (Auto) Baso % (Auto) Lymph # (Auto) [place] # (Auto) Eos # (Auto) Baso # (Auto) Abs Immat Gran (auto) Absolute Neuts (auto) Absolute Nucleated RBC Nucleated RBC % (auto) Smear Tech's Comments PT INR APTT D-Dimer VBG pH VBG pCO2 VBG pO2 VBG HCO3 VBG O2 Saturation VBG Base Excess Sodium 138 Potassium 4.2 Chloride 105 Carbon Dioxide 20 L Anion Gap 17 BUN 19 H Creatinine 0.67 Estim Creat Clear Calc 43.2 Estimated GFR > 60 Random Glucose 109 D Lactic Acid Lactic Acid Fup @ 2Hr Calcium 7.9 L Phosphorus 3.7 Magnesium 1.9 Ferritin Total Bilirubin Direct Bilirubin AST ALT Alkaline Phosphatase Lactate Dehydrogenase B-Natriuretic Peptide Total Protein Albumin Procalcitonin Quality Stroke Does the patient have a stroke diagnosis?: No VTE Prior VTE?: Yes VTE Risk Level:: Medical - moderate - high VTE Device Contraindication: Treatment Not Indicated VTE Drug Contraindication: N/A - Med Ordered Progress Note: A&P Assessment and plan (1) Acute respiratory distress syndrome (ARDS) due to COVID-19 virus: Status: Acute Assessment and Plan: Assessment: 86-year-old lady admitted with acute hypoxic respiratory failure secondary to COVID-19 ARDS. Plan: Neuro: No acute issues. Cardiac: No acute issues. Pulmonary: Acute hypoxic respiratory failure secondary to COVID-19 ARDS, now requiring high-flow nasal cannula support. Continue to titrate off as tolerated. Renal: No acute issues. Endo: No acute issues. GI: No acute issues. ID: COVID [id number], continue with dexamethasone. Heme/Onc: No acute issues. Psych: No acute issues. Miscellaneous: No acute issues. Prophylaxis: Heparin Diet: Regular Critical care time spent: 45 minutes (2) Acute respiratory failure with hypoxia: Status: Acute
--- NOTE | 2021-07-06 13:14 | MHC.CM.PN ---
IMM 07/06/21 FEMALE 86 LIVES WITH FAMILY ASSISTANCE ALL FUNCTIONAL MOBILITY. DP HOME WITH SERVICES VS STR VIA BLS. NO HCP ON FILE. PT IS DNR. cm WILL FOLLOW
[2021-07-07] VITALS (31 sets, daily range): BP systolic 94–139; BP diastolic 43–80; PULSE 60–115; RESP 11–34; TEMP 35.9–36.7; O2SAT 87–99; BMI 19.3
[2021-07-07] MEDS: Heparin Sodium,Porcine 5,000 UNIT/ML VIAL 5000 UNIT SUBCUT ×3 (00:11→17:35)
[2021-07-07 05:25] LABS: VBG Base Excess 0.3 mmol/L; VBG HCO3 23 mmol/L (22-26); VBG pCO2 32 mmHg; VBG pH 7.46 (7.32-7.43); VBG pO2 32 mmHg
[2021-07-07 05:26] LABS: Venous Blood Gas Refer to POC result
[2021-07-07 05:30] LABS: MANUAL DIFF FLAG NO
[2021-07-07 05:33] LABS: Basophils Percent Auto 0.1 % (0-2); Hematocrit 38.8 % (37-47); Hemoglobin 12.4 g/dl (12.0-16.0); Imm Gran Abs Auto 0.05 X10*3/uL (0.00-0.03); Imm Gran Pct Auto 0.4 % (0.0-0.4); Lymphocytes Absolute Auto 1.2 X10*3/uL (1.2-4.9); Lymphocytes Percent Auto 10.9 % (20-40); Mean Corpuscular Hemoglobin 27.7 pg (27.0-33.0); Mean Corpuscular Volume 86.6 fL (80-98); Mean Platelet Volume 10.3 fL (9.4-12.3); Monocytes Absolute Auto 0.5 X10*3/uL (0.1-1.2); Monocytes Percent Auto 4.1 % (2-11); Neutrophils Absolute Auto 9.6 X10*3/uL (2.0-8.3); Neutrophils Percent Auto 84.5 % (45-73); Platelet Count 335 X10*3/uL (160-400); Red Blood Count 4.48 X10*6/uL (4.20-5.50); Red Cell Distribution Width 14.5 % (11.0-16.0); White Blood Count 11.4 X10*3/uL (4.8-10.8)
[2021-07-07 06:07] LABS: Alanine Aminotransferase 39 U/L (0-31); Albumin Level 3.8 g/dL (3.5-5.0); Alkaline Phosphatase 46 U/L (39-117); Anion Gap 17 (12-20); Aspartate Amino Transferase 48 U/L (5-31); Bilirubin Total 0.5 mg/dL (0.0-1.0); Blood Urea Nitrogen 22 mg/dL (9-16); Calcium 8.4 mg/dL (8.4-10.2); Carbon Dioxide 21 mmol/L (22-29); Chloride 104 mmol/L (96-108); Creatinine Clr Calc Pharmacy 40.1; Estimated Glomerular Filt Rate > 60; Glucose Random 112 mg/dL (60-115); Phosphorus 2.5 mg/dL (2.7-4.5); Potassium 4.4 mmol/L (3.3-5.1); Sodium 138 mmol/L (135-145)
[2021-07-07] MEDS: dexAMETHasone sod phosphate 4 MG/ML VIAL 6 MG IVPUSH (08:42)
--- NOTE | 2021-07-07 10:53 | PM.CCPN ---
Subjective Subjective Date of Service: 07/07/21 Interval History: 86-year-old lady with underlying history of Crohn's disease, complete heart block status post PPM, remote DVT currently not on anticoagulation, no COVID vaccination, COVID positive on 06/30/2021 required admission on 07/05/2021 for acute hypoxic respiratory failure requiring high-flow nasal cannula support. Patient admitted to intensive care unit for close monitoring. Treated with dexamethasone. No events overnight. FiO2 requirements improved slightly. Critical Care Time (minutes): 45 Physical Exam Vital Signs: Vital Signs: Last Vital Signs Temp 97.1 F 07/07/21 08:00 Pulse 72 07/07/21 09:58 Resp 31 H 07/07/21 09:58 BP 116/54 L 07/07/21 10:02 Pulse Ox 93 07/07/21 09:58 Oxygen Flow Rate 60 07/05/21 16:00 Body Mass Index 19.3 Const: General: no acute distress, alert and awake Eyes: Sclerae: sclerae normal EOM: EOMs intact bilaterally Neck: Neck: Yes no lymphadenopathy, Yes trachea midline and Yes supple Resp: Effort & Inspection: normal respiratory effort and no respiratory distress Auscultation: crackles (Diffuse bilateral) Cardio: Rate: regular rate Rhythm: regular rhythm Heart sounds: no gallops, no murmurs and no rubs GI: Palpation (GI): Soft to palpation and Other GI palpation findings present ( Nontender) Auscultation: normal bowel sounds Extrem: General: Yes no pedal edema, No clubbing and No cyanosis Objective Data Labs CBC & Chem 7: 07/07/21 05:18 07/07/21 05:18 Labs: Laboratory Results - last 24 hr 07/07/21 07/07/21 07/07/21 05:17 05:18 05:18 WBC 11.4 H RBC 4.48 Hgb 12.4 Hct 38.8 MCV 86.6 MCH 27.7 MCHC 32.0 RDW 14.5 Plt Count 335 D MPV 10.3 Immature Gran % (Auto) 0.4 Neut % (Auto) 84.5 H Lymph % (Auto) 10.9 L [place] % (Auto) 4.1 Eos % (Auto) 0.0 Baso % (Auto) 0.1 Lymph # (Auto) 1.2 [place] # (Auto) 0.5 Eos # (Auto) 0.0 Baso # (Auto) 0.0 Abs Immat Gran (auto) 0.05 H Absolute Neuts (auto) 9.6 H Absolute Nucleated RBC 0.000 Nucleated RBC % (auto) 0.0 VBG pH 7.46 H VBG pCO2 32 VBG pO2 32 VBG HCO3 23 VBG O2 Saturation 50.0 VBG Base Excess 0.3 Sodium 138 Potassium 4.4 Chloride 104 Carbon Dioxide 21 L Anion Gap 17 BUN 22 H Creatinine 0.72 Estim Creat Clear Calc 40.1 Estimated GFR > 60 Random Glucose 112 Calcium 8.4 D Phosphorus 2.5 L Magnesium 2.0 Total Bilirubin 0.5 AST 48 H ALT 39 H Alkaline Phosphatase 46 D Total Protein 7.0 Albumin 3.8 Microbiology Microbiology Results: Microbiology 07/05/21 14:15 Blood - Venous Blood Culture - Final Coag negative Staphylococcus 07/05/21 14:15 Blood - Venous Blood Culture - Preliminary No growth after 24 hours. Quality Stroke Does the patient have a stroke diagnosis?: No VTE Prior VTE?: Yes VTE Risk Level:: Medical - moderate - high VTE Device Contraindication: Treatment Not Indicated VTE Drug Contraindication: N/A - Med Ordered Progress Note: A&P Assessment and plan (1) Acute respiratory distress syndrome (ARDS) due to COVID-19 virus: Status: Acute Assessment and Plan: Assessment: 86-year-old lady admitted with acute hypoxic respiratory failure secondary to COVID-19 ARDS. Plan: Neuro: No acute issues. Cardiac: No acute issues. Pulmonary: Acute hypoxic respiratory failure secondary to COVID-19 ARDS, now requiring high-flow nasal cannula support. Continue to titrate off as tolerated. Renal: No acute issues. Endo: No acute issues. GI: No acute issues. Underlying history of Crohn's disease. ID: COVID 19, continue with dexamethasone. Heme/Onc: No acute issues. Psych: No acute issues. Miscellaneous: No acute issues. Prophylaxis: Heparin Diet: Regular Critical care time spent: 45 minutes (2) Acute respiratory failure with hypoxia: Status: Acute (3) Crohn's disease: Status: Acute
--- NOTE | 2021-07-07 23:50 | PC.NURSE ---
Assumed care at 15:00. Patient alert, oriented x4, Lithuanian speaking only. Patient reports feeling sad about recent life events such as of her in August, spoke with family on iPad with good effect. Patient anxious with care, fears that she will fall out of bed; bed rails and orienting with good effect. Patient reports some left hip discomfort at skin level associated with stage 2 ulcer, barrier cream and repositioning with good effect; denies pain. Frequent cough is non-productive, progressively more moist. Patient was encouraged that coughing is not inherently bad, and it is ok for her to keep her airway clear, but cough is frequent, [employer] aware. Continues on high flow oxygen 40 LPM and 60%. Lung sounds fairly clear, dim bases. Patient using purewick external catheter with good effect, 500 ccs out today.
[2021-07-08] VITALS (31 sets, daily range): BP systolic 88–123; BP diastolic 48–74; PULSE 68–125; RESP 20–39; TEMP 35.6–37.4; O2SAT 83–98; BMI 20.1
[2021-07-08] MEDS: Heparin Sodium,Porcine 5,000 UNIT/ML VIAL 5000 UNIT SUBCUT ×3 (00:35→20:11)
[2021-07-08 05:25] LABS: VBG Base Excess 0.4 mmol/L; VBG HCO3 23 mmol/L (22-26); VBG pCO2 32 mmHg; VBG pH 7.46 (7.32-7.43); VBG pO2 29 mmHg
[2021-07-08 05:34] LABS: Venous Blood Gas Refer to POC result
[2021-07-08 05:50] LABS: MANUAL DIFF FLAG NO
[2021-07-08 05:55] LABS: Basophils Percent Auto 0.1 % (0-2); Hematocrit 40.2 % (37-47); Hemoglobin 13.2 g/dl (12.0-16.0); Imm Gran Abs Auto 0.09 X10*3/uL (0.00-0.03); Imm Gran Pct Auto 0.8 % (0.0-0.4); Lymphocytes Absolute Auto 1.1 X10*3/uL (1.2-4.9); Lymphocytes Percent Auto 9.5 % (20-40); Mean Corpuscular HGB Conc 32.8 g/dl (31.0-35.0); Mean Corpuscular Hemoglobin 28.4 pg (27.0-33.0); Mean Corpuscular Volume 86.6 fL (80-98); Mean Platelet Volume 10.2 fL (9.4-12.3); Monocytes Absolute Auto 0.3 X10*3/uL (0.1-1.2); Monocytes Percent Auto 2.5 % (2-11); Neutrophils Absolute Auto 10.1 X10*3/uL (2.0-8.3); Neutrophils Percent Auto 87.1 % (45-73); Platelet Count 365 X10*3/uL (160-400); Red Blood Count 4.64 X10*6/uL (4.20-5.50); Red Cell Distribution Width 14.6 % (11.0-16.0); White Blood Count 11.6 X10*3/uL (4.8-10.8)
[2021-07-08 06:22] LABS: Alanine Aminotransferase 30 U/L (0-31); Albumin Level 3.9 g/dL (3.5-5.0); Alkaline Phosphatase 50 U/L (39-117); Anion Gap 19 (12-20); Aspartate Amino Transferase 40 U/L (5-31); Bilirubin Total 0.3 mg/dL (0.0-1.0); Blood Urea Nitrogen 18 mg/dL (9-16); Calcium 8.5 mg/dL (8.4-10.2); Carbon Dioxide 22 mmol/L (22-29); Chloride 102 mmol/L (96-108); Creatinine Clr Calc Pharmacy 39.7; Estimated Glomerular Filt Rate > 60; Glucose Random 87 mg/dL (60-115); Potassium 4.2 mmol/L (3.3-5.1); Sodium 139 mmol/L (135-145); Total Protein 7.2 g/dL (6.5-8.0)
--- NOTE | 2021-07-08 07:30 | CA_ITS ---
Transthoracic Echocardiogram Patient (Last, First, Middle): Prerna Snow, Gender: Female Date of : 1935 Age: 86 Procedure Date: 07/08/2021 Procedure Type: Transthoracic Echocardiogram Location: ICU Height: 154.94 cm Weight: 46.72 kg BSA: 1.42 m2 Heart Rate: bpm BP: 94 / 58 mmHg Claims Director: SYLVIA Roman MD: Issa Toribio MD Buffer Operator: Jasvir Burnette MD Symptoms: dyspnea Study Quality: Fair ECG Rhythm: Sinus Conclusions: - 1. Normal biventricular systolic function with impaired relaxation filling of the LV 2. Normal RV systolic pressure Findings Left Ventricle Normal left ventricular cavity size. The left ventricular systolic function is normal. The visually estimated ejection fraction is between 55-60%. Spectral Doppler is indicative of an impaired relaxation filling pattern. E/E prime ratio is between 8 and 15 consistent with indeterminate filling pressures. There is mild septal asymmetric hypertrophy. Right Ventricle Normal right ventricular cavity size and systolic function. Tricuspid Valve The right ventricular systolic pressure is normal. The right ventricular systolic pressure is 35 mmHg. Normal right atrial pressure. There is no evidence of pulmonary hypertension. Venous The inferior vena cava was not well visualized. Prior Study Comparison No prior study available for comparison. Measurements 2D Linear Measurements IVSd: 1.09 0.6-0.9/0.6-1.0 cm LVIDd: 2.58 3.9-5.3/4.2-5.9 cm LVIDd Index: 1.82 2.4-3.2/2.2-3.1 cm/m2 LVIDs: 1.92 2.0-3.6 cm LVPWd: 0.83 0.7-1.1 cm LV Mass: 77.10 67-162/88-224 g LV Mass Index: 54.30 43-95/49-115 g/m2 2D Systolic Function EF 4C: 60.50 >55% EF 2C: 58.10 >55% EF BiP: 59.60 >55% Mitral Valve MV Pk E: 0.71 MV PK A: 0.93 MV Decel Time: 225.00 E/A: 0.80 E'Lateral: 7.18 E'Medial: 4.35 E/E' Med: 16.30 E/E' Lat: 9.90 PHT: 66.00 MVA PHT: 3.33 Decel [place]: 3.15 Diastolic Function MV Pk E: 0.71 MV Pk A: 0.93 E/A: 0.80 E'Medial: 4.35 E/E' Med: 16.30 E' Laterial: 7.18 E/E' Lat: 9.90 Right Ventricle TAPSE (mm): 1.77 Tricuspid Valve TR Pk Jake: 2.85 TR Pk Grad: 32.00 RA Press: 3.00 RVSP: 35.00 Updated in Other Vendor System with Status of Final Jasvir Burnette MD electronically signed on 07/08/2021 4:41:13 PM with status of Final
[2021-07-08] MEDS: dexAMETHasone sod phosphate 4 MG/ML VIAL 6 MG IVPUSH (08:31)
--- NOTE | 2021-07-08 10:18 | MHC.CLN ---
RE: CONSULT PT WITH INCREASED NUTRITION RISK R/T COVID AND PRESSURE INJURY DIET RX: CHOPPED-APPROPRIATE RECOMMEND ADDING ENSURE AND DOMINICK TO INCREASE KCALS AND PROMOTE WOUND HEALING SUPPLEMENTS TO PROVIDE 860KCALS, 45G PROTEIN MONITOR PO INTAKE CLOSELY SEE ALSO CLINICAL NUTRITION ASSESSMENT
[2021-07-08] MEDS: Cholecalciferol (Vitamin D3) 25 MCG TABLET 50 MCG PO (10:24)
[2021-07-08] MEDS: Aspirin 81 MG TAB.CHEW PO (10:24)
[2021-07-08] MEDS: Thiamine HCL 200 MG/2 ML VIAL IVPUSH (10:24)
--- NOTE | 2021-07-08 14:37 | MHC.CM.PN ---
Pt remains in ICU with COVID: on high flow O2 - aggitated, pulling at tubing, mask, crying out in Nigerian. Pt resides with family and is minimally functional at baseline with family providing most of pt's care. Family has initiated a DNR/DNI order: no HCP on file. Pt is not able to complete one at this time d/t her medical situation. CM will attempt again. D/C plan is for a return to home but family's abilities may not support the level of care pt may need. Will discuss STR with family once pt is more medically stable.
--- NOTE | 2021-07-08 16:19 | P.PNCC_ITS ---
Subjective Subjective Date of Service: 07/08/21 Critical Care Time (minutes): 80 Comment: Mrs. Dmitri Miramontes was admitted to the ICU on July 05 with acute hypoxemic respiratory failure secondary to COVID pneumonia. 86-year-old Malagasy speaking female with past medical history of Crohn's disease, history of complete heart block status post pacemaker, and history of deep venous thrombosis not on any anticoagulation or any chronic medications at all.? Prior chest xrays have shown a large hiatal hernia and multiple large gall stones.? The patient lives with a granddaughter.? Her within the last year. ?My understanding is that the patient requires total care. The patient was first diagnosed with COVID-19 infection on June 30 in our ED when the family brought her to the emergency room because of 4 days of cold symptoms, cough, and fever.? (I.e. symptom onset date approximately June 26.) ?Other family members were sick with the same symptoms.? The patient had not bee n vaccinated for COVID-19. ?In the ED that day, sat was 94% on room air. ?Chest x-ray showed no infiltrates and was basically unchanged from February,.? The patient was discharged home with a prescription for Zithromax and dexamethasone, which according to family, she had been taking. HISTORY OF PRESENT ILLNESS: ?On July 05, the patient?s symptoms got worse, becoming? more short of breath.? EMS was called.? At the scene, sat was 81% on room air.? She was placed on a NRBFM and BIBA to the ED. On admission, the patient was reportedly unkempt and had a stage II decubitus.? She was mildly tachypneic and on 60% HFNC, she was sat?ing 89%.? CXR showed bilat hazy infitrates.? CTPA (my reading) showed [id number] patchy, streaky and groundglass opacities scattered throughout both lungs. ?The LLL and lingula were compressed by the large hiatal hernia.? There were no PE.? The main PA was enlarged, the RV was normal sized, the RA was enlarged.? The chronic, large hiatal hernia contained stomach and some of the transverse and descending colon.? The gallbladder contained multiple small to large sized stones. Labs were signif for WBC 11, lymphocytes 4.5, BUN/creat 18/0.8, bicarb 21, AST 79, ALT 48, LDH 433, alb 3.4, lactic acid 3.5, BNP 209, D-dimer of 2393. The patient was admitted to the ICU for hypoxic respiratory failure 2? to COVID pneumonia, with possible requirement for noninvasive ventilation.? She was treated with standard Decadron.? DNR/DNI status was written.? Initial FiO2 was as low as 55% and improved to 50%, but over yesterday and last night deteriora kristy to 100%. This morning, she?s fully awake and interactive, and was able to eat some breakfast when fed by the nurse.? RR was 30-40/min on HFNC 60L/100%, with mild increased WOB.? Sat is 92-96%.? VBG this morning showed 7.46/32/0.? See Vital Signs below.? Been afebrile just about the entire hospitalization so far.? The rhythm is sinus on the monitor No JVD at 30?.? Chest is CTA with normal exp phase.? Regular rate and rhythm, with normal-sounding S1 and S2, with no murmur or gallops.? Abdomen is benign.? She has no edema. LABORATORY DATA:? As below.? Notably, white count and BUN/creatinine are stable. ?Phos is low. IMPRESSION: 1. Bilat COVID pneumonia with ARDS.? I?ve bumped her steroids to Solu-Medrol 60 mg bid, and added ivermectin, ASA, thiamine, and vit D.? (Vit C pills too big.)? Recheck biomarkers.? ED Penaloza will talk to the family tonight about the patient?s functional status at home, and their expectations.? If this patient requires CPAP or BiPAP, she?s not going to make it, so we will advise the family accordingly.? As it is, her prognosis does not look good. 2. Acute hypoxemic respiratory failure.? Secondary to above.? Rx with HFNC and opiates prn. 3. ID.? No suggestion of bacterial infection.? No abx indicated. 4. Metabolic.? Glucose levels in excellent control. 5. DVT prophylaxis:? Cut heparin dose to bid, given her diminutive size. 6. Nutrition.? We?ll try to get her to take 3 Ensures daily. Critical care time (including chart rev and hosp course summary):? 80 min. Physical Exam Vital Signs: Vital Signs: Last Vital Signs Temp 98.8 F 07/08/21 07:00 Pulse 68 07/08/21 16:00 Resp 23 H 07/08/21 16:04 BP 92/50 L 07/08/21 16:00 Pulse Ox 97 07/08/21 16:00 Oxygen Flow Rate 60 07/05/21 16:00 Body Mass Index 20.1 Objective Data Labs CBC & Chem 7: 07/08/21 05:18 07/08/21 05:18 Labs: Laboratory Results - last 24 hr 07/08/21 07/08/21 07/08/21 05:17 05:18 05:18 WBC 11.6 H RBC 4.64 Hgb 13.2 Hct 40.2 MCV 86.6 MCH 28.4 MCHC 32.8 RDW 14.6 Plt Count 365 MPV 10.2 Immature Gran % (Auto) 0.8 H Neut % (Auto) 87.1 H Lymph % (Auto) 9.5 L [place] % (Auto) 2.5 Eos % (Auto) 0.0 Baso % (Auto) 0.1 Lymph # (Auto) 1.1 L [place] # (Auto) 0.3 Eos # (Auto) 0.0 Baso # (Auto) 0.0 Abs Immat Gran (auto) 0.09 H Absolute Neuts (auto) 10.1 H Absolute Nucleated RBC 0.000 Nucleated RBC % (auto) 0.0 VBG pH 7.46 H VBG pCO2 32 VBG pO2 29 VBG HCO3 23 VBG O2 Saturation 49.0 VBG Base Excess 0.4 Sodium 139 Potassium 4.2 Chloride 102 Carbon Dioxide 22 Anion Gap 19 BUN 18 H Creatinine 0.73 Estim Creat Clear Calc 39.7 Estimated GFR > 60 Random Glucose 87 Calcium 8.5 Phosphorus 2.0 L Magnesium 2.0 Total Bilirubin 0.3 AST 40 H ALT 30 Alkaline Phosphatase 50 Total Protein 7.2 Albumin 3.9 Microbiology Microbiology Results: Microbiology 07/05/21 14:15 Blood - Venous Blood Culture - Preliminary No growth after 48 hours. 07/05/21 14:15 Blood - Venous Blood Culture - Final Coag negative Staphylococcus Quality Stroke Does the patient have a stroke diagnosis?: No VTE Prior VTE?: Yes VTE Risk Level:: Medical - moderate - high VTE Device Contraindication: Treatment Not Indicated VTE Drug Contraindication: N/A - Med Ordered
[2021-07-08] MEDS: methylPREDNISolone Sod Succ 125 MG/2 ML VIAL 60 MG IVPUSH (17:46)
--- NOTE | 2021-07-08 18:01 | PC.NURSE ---
AFEBRILE. VSS W/ MAP > 50. VPACED WITH UNDERLYING RHYTHM SR/ST. HR 110-120 AT BEGINNING OF SHIFT. DAY WENT ON HR 60-90S. 1:1 FEED WITH ALL MEALS, ATE < 25%. PO INTAKE ENCOURAGED. DRANK ENSURE WITH EASE. SOFT FOODS APPEAR EASIER FOR PT TO CHEW. INC X 2 OF URINE, PUREWICK ALSO IN PLACE. NO BM THIS SHIFT. Q2HR REPO, PREVALON MATTRESS AND PILLOWS UTLIZED, BARRIER CREAM APPLIED, BATHED. FAMILY UPDATED BY THIS RN.
[2021-07-08] MEDS: Sodium,Potassium Phosphates POWD.PACK 2 PACKET PO (18:15)
--- NOTE | 2021-07-08 21:18 | W.MHC.ACPN ---
Advanced Care Planning Note Advanced Care Planning Note Discussed with: family member(s) (Patient's granddaughter Shaista Gonzales) Time spent (in minutes): 20 Narrative: The above-mentioned family member is the patient's granddaughter. Reportedly she has been taking care of the patient 247 since September 29 of last year as the patient's and she became a . Patient requires significant assistance with her ADLs. Patient came from [place]. Patient uses a walker. She lives in a two-story house but she remains on the 1st floor, she gets bed baths but because of the stairs, she may only shower about once per month. Her granddaughter makes all her meals however the patient is able to eat on her own. Patient is known to be very talkative and has good attitude, good spirits and good appetite. I also discussed with the patient about goals of care, she continues to sigh or DNR DNI but if she was to need anything else, she is not opposed to using a mask however sure does not tolerated, then she simply wants to be made comfortable in case she was to worsen however she is willing to fight. Even though there is no paperwork to appoint her granddaughter as the legal healthcare proxy, the patient herself did tell me verbally that she would lie her granddaughter to make any decisions in the future in case she was not able to do herself. Problems Discussed (1) Acute respiratory distress syndrome (ARDS) due to COVID-19 virus: (2) Acute respiratory failure with hypoxia: (3) Crohn's disease:
[2021-07-09] VITALS (30 sets, daily range): BP systolic 89–138; BP diastolic 43–67; PULSE 75–109; RESP 22–38; TEMP 35.6–36.5; O2SAT 90–98
[2021-07-09] MEDS: methylPREDNISolone Sod Succ 125 MG/2 ML VIAL 60 MG IVPUSH ×2 (05:55→17:31)
[2021-07-09 07:19] LABS: VBG Base Excess 1.7 mmol/L; VBG HCO3 26 mmol/L (22-26); VBG pCO2 43 mmHg; VBG pO2 29 mmHg
[2021-07-09 07:21] LABS: Hemoglobin 12.4 g/dl (12.0-16.0); Mean Corpuscular HGB Conc 31.8 g/dl (31.0-35.0); Mean Corpuscular Hemoglobin 27.9 pg (27.0-33.0); Mean Corpuscular Volume 87.6 fL (80-98); Mean Platelet Volume 10.4 fL (9.4-12.3); Platelet Count 336 X10*3/uL (160-400); Red Blood Count 4.45 X10*6/uL (4.20-5.50); Red Cell Distribution Width 14.6 % (11.0-16.0); Venous Blood Gas Refer to POC result; White Blood Count 11.6 X10*3/uL (4.8-10.8)
[2021-07-09 07:33] LABS: D Dimer 752 NG/ML
[2021-07-09 07:47] LABS: Albumin Level 3.6 g/dL (3.5-5.0); Anion Gap 18 (12-20); Blood Urea Nitrogen 33 mg/dL (9-16); C Reactive Protein 16.69 mg/dL (< or = 0.50); Carbon Dioxide 26 mmol/L (22-29); Chloride 101 mmol/L (96-108); Creatinine Clr Calc Pharmacy 38.2; Estimated Glomerular Filt Rate > 60; Glucose Random 181 mg/dL (60-115); Phosphorus 2.1 mg/dL (2.7-4.5); Potassium 4.8 mmol/L (3.3-5.1); Sodium 140 mmol/L (135-145)
[2021-07-09] MEDS: Heparin Sodium,Porcine 5,000 UNIT/ML VIAL 5000 UNIT SUBCUT ×2 (07:54→20:30)
[2021-07-09] MEDS: Thiamine HCL 200 MG/2 ML VIAL IVPUSH (07:54)
[2021-07-09] MEDS: Aspirin 81 MG TAB.CHEW PO (07:55)
[2021-07-09] MEDS: Cholecalciferol (Vitamin D3) 25 MCG TABLET 50 MCG PO (07:55)
[2021-07-09 08:09] LABS: Ferritin 1497 ng/mL (10-250)
[2021-07-09] MEDS: Lactated Ringers 1,000 ML 50 ML IVCONT (10:13)
--- NOTE | 2021-07-09 14:22 | P.PNCC_ITS ---
Subjective Subjective Date of Service: 07/09/21 Critical Care Time (minutes): 50 Comment: Mrs. Dmitri Miramontes was admitted to the ICU on July 05 with acute hypoxemic respiratory failure secondary to COVID pneumonia. The patient is an 86-year-old Persian speaking female with past medical history of Crohn's disease, complete heart block status post pacemaker, and history of DVT not on any anticoagulation.? She?s not on any medications at all at home.? Prior chest xrays have shown a large hiatal hernia and multiple large gall stones.? The patient lives with a granddaughter.? Her within the last year.? The patient ambulates at home with a walker.? She requires help with bathing, dressing, and toileting. The patient was first diagnosed with COVID-19 infection on June 30 in our ED when the family brought her to the emergency room because of 4 days of cold symptoms, cough, and fever.? (I.e. symptom onset date approximately June 26.)? Other family members were sick with the same symptoms.? The patient had not been vaccinated for COVID-19.? In the ED that day, sat was 94% on room air.? Chest x- ray showed no infiltrates and was basically unchanged from CXR of February,.? The patient was discharged home with a prescription for Zithromax and dexamethasone, which according to family, she had been taking. HISTORY OF PRESENT ILLNESS:? On July 05, the patient?s symptoms got worse, becoming? more short of breath.? EMS was called.? At the scene, sat was 81% on room air.? She was placed on a NRBFM and BIBA to the ED. On admission, the patient was reportedly unkempt and had a stage II decubitus.? She was mildly tachypneic and on 60% HFNC was sat?ing 89%.? CXR showed bilat hazy infitrates.? CTPA (my reading) showed [id number] patchy, streaky and groundglass opacities scattered throughout both lungs.? The LLL and lingula were compressed by the large hiatal hernia.? There was no PE.? The main PA was enlarged, the RV was normal sized, the RA was enlarged.? The chronic large hiatal hernia contained stomach and some of the transverse and descending colon.? The gallbladder contained multiple small to large sized stones. Labs were signif for WBC 11, lymphocytes 4.5, BUN/creat 18/0.8, bicarb 21, AST 79, ALT 48, LDH 433, alb 3.4, lactic acid 3.5, BNP 209, D-dimer of 2393. The patient was admitted to the ICU for hypoxic respiratory failure 2? to COVID pneumonia, with possible requirement for noninvasive ventilation.? She was treated with the usual Decadron.? DNR/DNI status was written.? FiO2 improved to 50%, but over deteriorated over the last 2 days, and she has been on 100% FiO2 since then. Today, she?s fully awake and interactive, and was able to eat some breakfast when fed by the nurse.? She loves the ensure and chugs it down.? She is c/o sore mouth.? RR is about 30 on HFNC 50L/100%, with mild increased WOB, a little better than yesterday.? Sat is 97%.? With the FiO2 down to 90%, the sat is 94%. ?VBG this morning showed 7.40/43/+1.? See Vital Signs below.? Been afebrile just about the entire hospitalization so far.? The rhythm is sinus on the monitor. ?Has small amount of thrush on right side of tongue.? No JVD at 30?.? Chest is CTA with normal exp phase.? Regular rate and rhythm, with normal-sounding S1 and S2, with no murmur or gallops.? Abdomen is benign.? She has no edema. LABORATORY DATA:? As below.? Notably, white count is steady.? BUN is bumped to 33.? Random glucose this morning up to 181. ?Phos is low. ?D-dimer is down to 752. Ferritin up slightly to 1497. CRP is 16. IMPRESSION: 1. Bilat COVID pneumonia with ARDS.? Her steroids were increased yesterday to Solu-Medrol 60 mg bid, and ivermectin, ASA, thiamine, and vit D were added.? (Vit C pills are too big.)? ED Penaloza spoke with the family last night.? We will maintain DNR/DNI status. ?We will proceed with CPAP or BiPAP if required. 2. Acute hypoxemic respiratory failure.? Secondary to above.? Rx with HFNC and opiates prn. 3. ID.? No suggestion yet of bacterial infection.? No abx indicated. 4. Metabolic.? Glucose levels are increasing because of the increase in the steroid dose.? We?ll start her on a sliding scale. 5. DVT prophylaxis:? Cut heparin dose to bid, given her diminutive size. 6. Nutrition.? Seems like she?s getting close to adequate protein and calorie intake via the Ensures.? Albumin level is normal. 7. Mouth sores.? Start Nystatin bid and Magic Mouthwash bid. 8. Hypophosphatemia. Replete. Prognosis is very guarded. Critical care time (including chart rev and hosp course summary):? 50 min. Physical Exam Vital Signs: Vital Signs: Last Vital Signs Temp 96.3 F L 07/09/21 08:00 Pulse 100 07/09/21 14:00 Resp 28 H 07/09/21 14:00 BP 98/66 07/09/21 14:00 Pulse Ox 95 07/09/21 14:00 Oxygen Flow Rate 60 07/05/21 16:00 Body Mass Index 20.1 Objective Data Labs CBC & Chem 7: 07/09/21 07:12 07/09/21 07:12 Labs: Laboratory Results - last 24 hr 07/09/21 07/09/21 07/09/21 07:10 07:12 07:12 WBC 11.6 H RBC 4.45 Hgb 12.4 Hct 39.0 MCV 87.6 MCH 27.9 MCHC 31.8 RDW 14.6 Plt Count 336 MPV 10.4 Absolute Nucleated RBC 0.000 Nucleated RBC % (auto) 0.0 D-Dimer VBG pH 7.40 VBG pCO2 43 VBG pO2 29 VBG HCO3 26 VBG O2 Saturation 37.0 VBG Base Excess 1.7 Sodium 140 Potassium 4.8 Chloride 101 Carbon Dioxide 26 Anion Gap 18 BUN 33 H D Creatinine 0.76 Estim Creat Clear Calc 38.2 Estimated GFR > 60 Random Glucose 181 H D Calcium 9.0 Phosphorus 2.1 L Ferritin 1497 H C-Reactive Protein 16.69 H Albumin 3.6 Ur Random Sodium 07/09/21 07/09/21 07:12 10:58 WBC RBC Hgb Hct MCV MCH MCHC RDW Plt Count MPV Absolute Nucleated RBC Nucleated RBC % (auto) D-Dimer 752 VBG pH VBG pCO2 VBG pO2 VBG HCO3 VBG O2 Saturation VBG Base Excess Sodium Potassium Chloride Carbon Dioxide Anion Gap BUN Creatinine Estim Creat Clear Calc Estimated GFR Random Glucose Calcium Phosphorus Ferritin C-Reactive Protein Albumin Ur Random Sodium 48.0 Microbiology Microbiology Results: Microbiology 07/05/21 14:15 Blood - Venous Blood Culture - Preliminary No growth after 48 hours. 07/05/21 14:15 Blood - Venous Blood Culture - Final Coag negative Staphylococcus Quality Stroke Does the patient have a stroke diagnosis?: No VTE Prior VTE?: Yes VTE Risk Level:: Medical - moderate - high VTE Device Contraindication: Treatment Not Indicated VTE Drug Contraindication: N/A - Med Ordered Critical Care Time Critical Care Time (minutes): 60
[2021-07-09 14:23] LABS: Glucose, Whole Blood 229 mg/dL (60-115)
[2021-07-09] MEDS: Sodium,Potassium Phosphates POWD.PACK 2 PACKET PO (15:06)
[2021-07-09 16:18] LABS: Glucose, Whole Blood 241 mg/dL (60-115)
[2021-07-09] MEDS: Insulin Lispro 100 UNIT/ML 3 ML VIAL SUBCUT ×2 (16:18→20:31)
--- NOTE | 2021-07-09 16:21 | MHC.CM.PN ---
Pt remains in ICU on hi flow O2 secondary to COVID. Per goals of care discussion with family on 07/08, pt may transition to NIPPV but no intubation. Pt is anxious and has a poor po intake. Dietary is following and meds will be introduced to assist pt with anxiety. Original d/c plan is for a return to home, however, this seems unlikely. CM to contact family on 07/10 to revisit and discuss alternative d/c options.
[2021-07-09] MEDS: Nystatin Oral Susp 500,000 UNIT/5 ML ORAL.SUSP 500000 UNIT PO (17:31)
--- NOTE | 2021-07-09 18:19 | PC.NURSE ---
AFEBRILE. VSS. VPACED WITH UNDERLYING SR. HIGH FLOW TITRATED DOWN TO 50L/905 AND TOLERATING WELL. DESAT RAPIDLY TO 70S WHEN 02 REMOVED. TELESITTER REMAINS BEDSIDE FOR SAFETY. 1:1 FEED WITH PO FLUIDS ENCOURAGED. PT REALLY LIKES ENSURES AND CUT UP BANANAS. WHITE SPOTS NOTED TO RIGHT SIDE OF TONGUE. MD NOTIFIED. SEE EMAR FOR MEDICATIONS ORDERED FOR TREATMENT. FREQUENT ORAL CARE GIVEN. Q2HR REPO, BATHED, BARRIER CREAM, TRIAD AND PINK FOAM TO BUTTOCK. PREVALON MATTRESS AND PILLOWS UTILIZED. FAMILY UPDATED AND FACETIMED WITH PATIENT.
[2021-07-09] MEDS: Mag&Al/Sim/Diphenhyd/Lidocaine 10 ML ORAL.SUSP PO (20:30)
[2021-07-09] MEDS: Acetaminophen 325 MG TABLET 650 MG PO (23:47)
[2021-07-10] VITALS (33 sets, daily range): BP systolic 95–132; BP diastolic 49–89; PULSE 68–130; RESP 18–46; TEMP 35.9–37.1; O2SAT 86–98; BMI 20.2
[2021-07-10 03:56] LABS: Glucose, Whole Blood 197 mg/dL (60-115)
[2021-07-10] MEDS: methylPREDNISolone Sod Succ 125 MG/2 ML VIAL 60 MG IVPUSH ×2 (05:26→16:19)
[2021-07-10] MEDS: Nystatin Oral Susp 500,000 UNIT/5 ML ORAL.SUSP 500000 UNIT PO ×2 (05:26→16:19)
[2021-07-10 05:36] LABS: VBG HCO3 30 mmol/L (22-26); VBG pCO2 39 mmHg; VBG pH 7.49 (7.32-7.43); VBG pO2 34 mmHg
[2021-07-10 05:53] LABS: Hematocrit 37.5 % (37-47); Mean Corpuscular Hemoglobin 28.2 pg (27.0-33.0); Mean Corpuscular Volume 88.2 fL (80-98); Mean Platelet Volume 10.5 fL (9.4-12.3); Platelet Count 373 X10*3/uL (160-400); Red Blood Count 4.25 X10*6/uL (4.20-5.50); Red Cell Distribution Width 14.6 % (11.0-16.0); White Blood Count 12.8 X10*3/uL (4.8-10.8)
[2021-07-10 06:24] LABS: Anion Gap 16 (12-20); Blood Urea Nitrogen 36 mg/dL (9-16); Calcium 9.7 mg/dL (8.4-10.2); Carbon Dioxide 29 mmol/L (22-29); Chloride 102 mmol/L (96-108); Creatinine Clr Calc Pharmacy 39.2; Estimated Glomerular Filt Rate > 60; Glucose Random 149 mg/dL (60-115); Phosphorus 2.6 mg/dL (2.7-4.5); Potassium 5.6 mmol/L (3.3-5.1); Sodium 141 mmol/L (135-145)
[2021-07-10 07:32] LABS: Venous Blood Gas Refer to POC result
[2021-07-10 07:33] LABS: Glucose, Whole Blood 151 mg/dL (60-115)
[2021-07-10] MEDS: Aspirin 81 MG TAB.CHEW PO (07:38)
[2021-07-10] MEDS: Cholecalciferol (Vitamin D3) 25 MCG TABLET 50 MCG PO (07:39)
[2021-07-10] MEDS: Thiamine HCL 200 MG/2 ML VIAL IVPUSH (07:39)
[2021-07-10] MEDS: Heparin Sodium,Porcine 5,000 UNIT/ML VIAL 5000 UNIT SUBCUT ×2 (07:39→22:23)
[2021-07-10] MEDS: Mag&Al/Sim/Diphenhyd/Lidocaine 10 ML ORAL.SUSP PO ×2 (07:40→22:23)
--- NOTE | 2021-07-10 08:48 | MHC.CLN ---
F/U PO INTAKE 25% CONSISTENTLY DIET RX: CHOPPED-APPROPRIATE PT RECEIVING ENSURE AND DOMINICK TO INCREASE KCALS AND PROMOTE WOUND HEALING NSG NOTES PT ENJOYS ENSURE AND CUT UP BANANAS SUPPLEMENTS TO PROVIDE 860KCALS (61% EST KCALS), 45G PROTEIN (64%EST PROTEIN) CONTINUE TO MONITOR PO INTAKE CLOSELY
[2021-07-10 11:21] LABS: Glucose, Whole Blood 273 mg/dL (60-115)
[2021-07-10] MEDS: Insulin Lispro 100 UNIT/ML 3 ML VIAL SUBCUT ×3 (11:21→22:40)
[2021-07-10] MEDS: Acetaminophen 325 MG TABLET 650 MG PO (11:21)
[2021-07-10] MEDS: HYDROmorphone HCl 0.5 MG/0.5 ML SYRINGE IVPUSH ×2 (14:46→19:30)
[2021-07-10 16:36] LABS: Glucose, Whole Blood 176 mg/dL (60-115)
--- NOTE | 2021-07-10 19:35 | P.PNCC_ITS ---
Subjective Subjective Date of Service: 07/10/21 Critical Care Time (minutes): 60 Comment: Mrs. Dmitri Miramontes was admitted to the ICU on July 05 with acute hypoxemic respiratory failure secondary to COVID pneumonia. The patient is an 86-year-old Chinese speaking female with past medical history of Crohn's disease, complete heart block status post pacemaker, and history of DVT not on any anticoagulation.? She?s not on any medications at all at home.? Prior chest xrays have shown a large hiatal hernia and multiple large gall stones.? The patient lives with a granddaughter.? Her within the last year.? The patient ambulates at home with a walker.? She requires help with bathing, dressing, and toileting. The patient was first diagnosed with COVID-19 infection on June 30 in our ED when the family brought her to the emergency room because of 4 days of cold symptoms, cough, and fever.? (I.e. symptom onset date approximately June 26.)? Other family members were sick with the same symptoms.? The patient had not been vaccinated for COVID-19.? In the ED that day, sat was 94% on room air.? Chest x- ray showed no infiltrates and was basically unchanged from CXR of February,.? The patient was discharged home with a prescription for Zithromax and dexamethasone, which according to family, she had been taking. HISTORY OF PRESENT ILLNESS:? On July 05, the patient?s symptoms got worse, becoming? more short of breath.? EMS was called.? At the scene, sat was 81% on room air.? She was placed on a NRBFM and BIBA to the ED. On admission, the patient was reportedly unkempt and had a stage II decubitus.? She was mildly tachypneic and on 60% HFNC was sat?ing 89%.? CXR showed bilat hazy infitrates.? CTPA (my reading) showed [id number] patchy, streaky and groundglass opacities scattered throughout both lungs.? The LLL and lingula were compressed by the large hiatal hernia.? There was no PE.? The main PA was enlarged, the RV was normal sized, the RA was enlarged.? The chronic large hiatal hernia contained stomach and some of the transverse and descending colon.? The gallbladder contained multiple small to large sized stones. Labs were signif for WBC 11, lymphocytes 4.5, BUN/creat 18/0.8, bicarb 21, AST 79, ALT 48, LDH 433, alb 3.4, lactic acid 3.5, BNP 209, D-dimer of 2393. The patient was admitted to the ICU for hypoxic respiratory failure 2? to COVID pneumonia, with possible requirement for noninvasive ventilation.? She was treated with the usual Decadron.? DNR/DNI status was written.? FiO2 improved to 50% but then deteriorated.? Over the last 3 days she has been on 100% FiO2 on the HFNC.? Yesterday we were able to get her down to 90% for few hours.? We wrote her for Nystatin and Magic Mouthwash for oral thrush and mouth soreness. Today, she?s fully awake and interactive.? She loves the ensure and chugs it down.? She is c/o sore mouth.? RR is mid-high 30s on HFNC 60L/100%, with mild increased WOB, with sat 87-92%.? VBG this morning showed 7.49/39/+7.? HR today is increased to the 106-120 range, still SR w V-pacing.? BP about 120/80. ?Been afebrile just about the entire hospitalization so far.? No JVD at 30?.? Chest is CTA with normal exp phase.? Regular rate and rhythm, with normal-sounding S1 and S2, with no murmur or gallops.? Abdomen is benign.? She has no edema. LABORATORY DATA:? As below.? Notably, white count up slightly.? BUN bumped to 36, creat stable at 0.7.? Potassium is up to 5.6. ?POCs mostly in the 100s.? Phos is low. IMPRESSION: 1. Bilat COVID pneumonia with ARDS.? On 07/08, her steroids were increased to Solu-Medrol 60 mg bid, and ivermectin, ASA, thiamine, and vit D were added.? (Vit C pills are too big.)? ED Penaloza spoke with the family that night.? We will maintain DNR/DNI status.? We will proceed with CPAP or BiPAP if required. 2. Acute hypoxemic respiratory failure.? Secondary to above.? Rx with HFNC and opiates prn.? She does very well with dilaudid 0.5 mg.? It slows her RR to the 20?s without any impact on her Sat.? And it calms her down very nicely. 3. ID.? No suggestion yet of bacterial infection.? No abx indicated.? Bec of the original BCs that were reported back with one set positive for Coag neg staph, without a repeat BC, I?ve ordered BCs and a lactate and repeat PCT tonite. 4. Tachycardia.? Of some concern.? I'm ordering BCs, PCT, lactate now.? We'll start her on low dose esmolol and fentanyl infusions. 5. Metabolic.? Glucose levels are up because of the increase in the steroid dose.? She?s getting low dose sliding scale insulin. 6. DVT prophylaxis:? Cut her heparin dose to 5000u bid, given her diminutive size. 7. Mouth sores.? Start Nystatin bid and Magic Mouthwash bid. 8. Hypophosphatemia.? Replete. 9. Nutrition.? Three Ensures/day is 60 g protein, more than adequate.? The only question is she getting adequate calories.? Albumin level yest was low- normal.rognosis is very guarded. Prognosis is very guarded. Critical care time (mult visits to the bedside today):? 60 min. Physical Exam Vital Signs: Vital Signs: Last Vital Signs Temp 97.2 F 07/10/21 16:00 Pulse 114 H 07/10/21 18:54 Resp 33 H 07/10/21 18:54 BP 132/89 07/10/21 18:54 Pulse Ox 86 L 07/10/21 18:54 Oxygen Flow Rate 60 07/05/21 16:00 Body Mass Index 20.2 Objective Data Labs CBC & Chem 7: 07/10/21 05:30 07/10/21 05:30 Labs: Laboratory Results - last 24 hr 07/09/21 07/10/21 07/10/21 20:30 05:29 05:30 WBC 12.8 H RBC 4.25 Hgb 12.0 Hct 37.5 MCV 88.2 MCH 28.2 MCHC 32.0 RDW 14.6 Plt Count 373 MPV 10.5 Absolute Nucleated RBC 0.000 Nucleated RBC % (auto) 0.0 VBG pH 7.49 H VBG pCO2 39 VBG pO2 34 VBG HCO3 30 H VBG O2 Saturation 55.0 VBG Base Excess 7.0 Sodium Potassium Chloride Carbon Dioxide Anion Gap BUN Creatinine Estim Creat Clear Calc Estimated GFR POC Glucose 197 H Random Glucose Calcium Phosphorus 07/10/21 07/10/21 07/10/21 05:30 07:27 11:17 WBC RBC Hgb Hct MCV MCH MCHC RDW Plt Count MPV Absolute Nucleated RBC Nucleated RBC % (auto) VBG pH VBG pCO2 VBG pO2 VBG HCO3 VBG O2 Saturation VBG Base Excess Sodium 141 Potassium 5.6 H Chloride 102 Carbon Dioxide 29 Anion Gap 16 BUN 36 H Creatinine 0.74 Estim Creat Clear Calc 39.2 Estimated GFR > 60 POC Glucose 151 H 273 H Random Glucose 149 H Calcium 9.7 D Phosphorus 2.6 L 07/10/21 16:23 WBC RBC Hgb Hct MCV MCH MCHC RDW Plt Count MPV Absolute Nucleated RBC Nucleated RBC % (auto) VBG pH VBG pCO2 VBG pO2 VBG HCO3 VBG O2 Saturation VBG Base Excess Sodium Potassium Chloride Carbon Dioxide Anion Gap BUN Creatinine Estim Creat Clear Calc Estimated GFR POC Glucose 176 H Random Glucose Calcium Phosphorus Microbiology Microbiology Results: Microbiology 07/05/21 14:15 Blood - Venous Blood Culture - Final No growth after 5 days. 07/05/21 14:15 Blood - Venous Blood Culture - Final Coag negative Staphylococcus Quality Stroke Does the patient have a stroke diagnosis?: No VTE Prior VTE?: Yes VTE Risk Level:: Medical - moderate - high VTE Device Contraindication: Treatment Not Indicated VTE Drug Contraindication: N/A - Med Ordered Critical Care Time Critical Care Time (minutes): 60
[2021-07-10] MEDS: Esmolol HCl/NaCl Iso 2,500 MG/250 ML IV.SOLN IVCONT (19:53)
[2021-07-10] MEDS: fentaNYL citrate/NS 1,000 MCG/100 ML PLAST..BAG 2.5 MCG IVCONT (19:53)
[2021-07-10 20:47] LABS: VBG Base Excess 8.5 mmol/L; VBG HCO3 32 mmol/L (22-26); VBG pCO2 43 mmHg; VBG pH 7.48 (7.32-7.43); VBG pO2 67 mmHg
[2021-07-10 21:26] LABS: Lactic Acid 2.4 mmol/L (0.5-2.0)
[2021-07-10 21:27] LABS: Venous Blood Gas Refer to POC result
[2021-07-10 22:46] LABS: Glucose, Whole Blood 185 mg/dL (60-115)
[2021-07-10 22:54] LABS: Reflex Lactate? Lactic Acid Added
[2021-07-11] VITALS (46 sets, daily range): BP systolic 93–132; BP diastolic 48–92; PULSE 67–127; RESP 14–42; TEMP 36–37.5; O2SAT 81–99; BMI 20.2
[2021-07-11 00:03] LABS: ~Lactic Acid-LAB USE ONLY 2.4 mmol/L (0.5-2.0)
[2021-07-11 01:43] LABS: Reflex Lactate? 2 Y
[2021-07-11 02:03] LABS: Cancel Lactic Acid Canceled
--- NOTE | 2021-07-11 02:40 | PC.NURSE ---
Assumed care of pt at 1900. Pt very anxious with any interventions; she will resist care and stiffen up and make repositioning difficult. One dose of dilaudid 0.5 mg IV given with some effectiveness but heart rate and resp rate remained high. Hr 110's-120 and RR 28-30's. Dr Stemp at bedside. Fentanyl drip ordered as well as esmolol drip. Heart rate down to 80's-90's at 50 mcg/kg/min. Pt calm at rest on fentanyl at 50 mcg/hr but still resistive to care when rendered.
[2021-07-11] MEDS: fentaNYL citrate/PF 100 MCG/2 ML VIAL 25 MCG IVPUSH (03:47)
[2021-07-11 05:36] LABS: VBG Base Excess 9.4 mmol/L; VBG HCO3 33 mmol/L (22-26); VBG pCO2 42 mmHg; VBG pO2 58 mmHg
[2021-07-11 05:39] LABS: Venous Blood Gas Refer to POC result
[2021-07-11] MEDS: methylPREDNISolone Sod Succ 125 MG/2 ML VIAL 60 MG IVPUSH ×2 (05:44→17:20)
[2021-07-11] MEDS: Nystatin Oral Susp 500,000 UNIT/5 ML ORAL.SUSP 500000 UNIT PO (05:45)
[2021-07-11 05:46] LABS: Hematocrit 36.1 % (37-47); Hemoglobin 11.4 g/dl (12.0-16.0); Mean Corpuscular HGB Conc 31.6 g/dl (31.0-35.0); Mean Corpuscular Hemoglobin 28.1 pg (27.0-33.0); Mean Corpuscular Volume 88.9 fL (80-98); Mean Platelet Volume 10.7 fL (9.4-12.3); Platelet Count 385 X10*3/uL (160-400); Red Blood Count 4.06 X10*6/uL (4.20-5.50); Red Cell Distribution Width 14.7 % (11.0-16.0); White Blood Count 15.7 X10*3/uL (4.8-10.8)
[2021-07-11 06:08] LABS: Albumin Level 3.2 g/dL (3.5-5.0); Anion Gap 14 (12-20); Blood Urea Nitrogen 35 mg/dL (9-16); Calcium 9.2 mg/dL (8.4-10.2); Carbon Dioxide 31 mmol/L (22-29); Chloride 101 mmol/L (96-108); Estimated Glomerular Filt Rate > 60; Glucose Random 120 mg/dL (60-115); Phosphorus 4.3 mg/dL (2.7-4.5); Potassium 5.9 mmol/L (3.3-5.1); Sodium 140 mmol/L (135-145)
[2021-07-11] MEDS: Albumin Human 25 % 100 ML IV (07:15)
[2021-07-11] MEDS: Mag&Al/Sim/Diphenhyd/Lidocaine 10 ML ORAL.SUSP PO (07:16)
[2021-07-11] MEDS: Aspirin 81 MG TAB.CHEW PO (07:16)
[2021-07-11] MEDS: Heparin Sodium,Porcine 5,000 UNIT/ML VIAL 5000 UNIT SUBCUT ×2 (07:16→21:55)
[2021-07-11] MEDS: Thiamine HCL 200 MG/2 ML VIAL IVPUSH (07:16)
[2021-07-11] MEDS: Cholecalciferol (Vitamin D3) 25 MCG TABLET 50 MCG PO (07:16)
[2021-07-11 07:24] LABS: Glucose, Whole Blood 121 mg/dL (60-115)
[2021-07-11] MEDS: fentaNYL citrate/NS 1,000 MCG/100 ML PLAST..BAG 5 MCG IVCONT ×2 (08:25→20:34)
[2021-07-11] MEDS: Esmolol HCl/NaCl Iso 2,500 MG/250 ML IV.SOLN 14.13 MG IVCONT (10:17)
[2021-07-11 10:21] LABS: Procalcitonin 0.29 ng/mL
[2021-07-11] MEDS: dexmedeTOMIDidine HCL/NS 400 MCG/100 ML INFUS..BTL IVCONT (10:29)
[2021-07-11] MEDS: acetaZOLAMIDE 250 MG TABLET PO (10:35)
[2021-07-11 11:18] LABS: Glucose, Whole Blood 211 mg/dL (60-115)
[2021-07-11] MEDS: Insulin Lispro 100 UNIT/ML 3 ML VIAL SUBCUT (12:57)
--- NOTE | 2021-07-11 15:41 | MHC.CM.PN ---
Call placed to pt's grand dtr Indigo: Will call back with the assistance of an youth officer.
[2021-07-11 16:28] LABS: Glucose, Whole Blood 221 mg/dL (60-115)
--- NOTE | 2021-07-11 17:00 | PC.NURSE ---
Addendum entered by Tami Sherman RN 07/11/21 18:04: Patient is anxious, pulling at Bipap mask. Spanish Linguist at bedside and patient is unable to redirect. Precedex gtt turned back on at 0.2mcg per MD - Precedex bolus of 10mcg administered via IVP over ten minutes. Fentanyl down to 50mcg & Esmolol gtt down to 50mcg per MD order. Tidal volumes 450-525. Patient switched over to CPAP of 10 @ 90% per MD. Current vitals : HR 118, BP 131/80, RR 21, 94% on 90% Fio2. Original Note: S/E Afebrile, WBC up to 15.7, Lactic 2.4, BC pending A&O x4, anxious, resistive to care, difficult to redirect Pupils 3mm, PERRLA Precedex gtt started - SBP 90's, RR 15-18 - gtt turned off per MD 100% vpaced - Continued on Esmolol gtt - HR 100's PRN Angios intact Albumin 100cc x1 dose administered LS dim thoughout, intermittent hacking cough, no secretions Maxed on Fentanyl gtt for increased WOB - RR 34-42 w/ care & at rest Increasing oxygen requirements - Spo2 down to high 79-82% on 100% NRB & High flow VBGs 7.50/42/58/33 Diamox PO 250 BID started 1700 - Placed on Bipap 11/05 @ 90% Continued on Solumedrol & Invermectin Abdomen soft, nontender, faint BS Last BM 07/10 Poor PO intake <25% - tolerating Ensures well POC's low 200's - continued on Humalog QID Puriwick changed and intact Stag 2 L buttocks - traid applied and open to air Repo q2hr, bathed, prevlon pad & air loss mattress in place Family to be updated by night PA per MD
[2021-07-11] MEDS: HYDROmorphone HCl 0.5 MG/0.5 ML SYRINGE IVPUSH (17:19)
--- NOTE | 2021-07-11 19:27 | P.PNCC_ITS ---
Subjective Subjective Date of Service: 07/11/21 Critical Care Time (minutes): 80 Comment: Mrs. Dmitri Miramontes was admitted to the ICU on July 05 with acute hypoxemic respiratory failure secondary to COVID pneumonia. The patient is an 86-year-old Romanian speaking female with past medical history of Crohn's disease, complete heart block status post pacemaker, and history of DVT not on any anticoagulation.? She?s not on any medications at all at home.? Prior chest xrays have shown a large hiatal hernia and multiple large gall stones.? The patient lives with a granddaughter.? Her within the last year.? The patient ambulates at home with a walker.? She requires help with bathing, dressing, and toileting. The patient was first diagnosed with COVID-19 infection on June 30 in our ED when the family brought her to the emergency room because of 4 days of cold symptoms, cough, and fever.? (I.e. symptom onset date approximately June 26.)? Other family members were sick with the same symptoms.? The patient had not been vaccinated for COVID-19.? In the ED that day, sat was 94% on room air.? Chest x- ray showed no infiltrates and was basically unchanged from CXR of February,.? The patient was discharged home with a prescription for Zithromax and dexamethasone, which according to family, she had been taking. HISTORY OF PRESENT ILLNESS:? On July 05, the patient?s symptoms got worse, becoming? more short of breath.? EMS was called.? At the scene, sat was 81% on room air.? She was placed on a NRBFM and BIBA to the ED. On admission, the patient was reportedly unkempt and had a stage II decubitus.? She was mildly tachypneic and on 60% HFNC was sat?ing 89%.? CXR showed bilat hazy infitrates.? CTPA (my reading) showed [id number] patchy, streaky and groundglass opacities scattered throughout both lungs.? The LLL and lingula were compressed by the large hiatal hernia.? There was no PE.? The main PA was enlarged, the RV was normal sized, the RA was enlarged.? The chronic large hiatal hernia contained stomach and some of the transverse and descending colon.? The gallbladder contained multiple small to large sized stones. Labs were signif for WBC 11, lymphocytes 4.5, BUN/creat 18/0.8, bicarb 21, AST 79, ALT 48, LDH 433, alb 3.4, lactic acid 3.5, BNP 209, D-dimer of 2393. The patient was admitted to the ICU for hypoxic respiratory failure 2? to COVID pneumonia, with possible requirement for noninvasive ventilation.? She was treated with the usual Decadron.? DNR/DNI status was written.? FiO2 improved to 50% but then deteriorated.? On 07/08, her steroids were increased to Solu-Medrol 60 mg bid.? Ivermectin, ASA, thiamine, and vit D were added.? ED Penaloza spoke with the family that night.? We are maintaining DNR/DNI status.? Over the last 4 days she has been on 100% FiO2 on the HFNC.? She?s on Nystatin and Magic Mouthwash for oral thrush and mouth soreness. Her oxygenation and overall condition have been deteriorating throughout the day today, and this evening we had to put her on CPAP.? At about 9am, her Sats on the HFNC 60L/100% dropped into the high 80?s, then low 80?s.? No major change in her WOB.? We upped her fentanyl to 50ug/hr, which helped a little.? We tried Precedex, but that slowed her RR too much and dropped her BP, so that was d/c?d.? VBG this morning was unchanged though, at 7.50/42/+9.? She was still easily arousable and communicative, still anxious.? She was still able to drink her ensure.? HR on esmolol was in the 90?s, SR w V-pacing.? BP about 100/50.? Continues afebrile.? No JVD at 30?.? Chest still CTA with normal exp phase.? Regular rate and rhythm, with normal-sounding S1 and S2, with no murmur or gallops.? Abdomen is benign.? She has no edema. LABORATORY DATA:? As below.? Notably, white count up further.? BUN/creat steady.? Potassium is up further to 5.9.? POCs in the 100s-low 200s.? Phos is up to 4.3. CXR this evening shows worsening infiltrates in the right lung.? I do not see any subcutaneous emphysema, pneumomediastinum, or pneumothorax. IMPRESSION: ?1. Bilat COVID pneumonia with ARDS.? Chances of survival now are probably about 1%.? ED Penaloza will speak with the family.? If we continue, we?ll have to place a CVL to make any meaningful efforts. ?2. Acute hypoxemic respiratory failure.? Secondary to above.? We?ve added Precedex back after we started CPAP.? She?s doing much better on that. ?3. ID.? No fever, but in view of the WBC, I?ll start doxycycline. ?BCs drawn yesterday are still negative.? Lactic acid yesterday was 2.4, PCT was 0.29.? She may have viral sepsis.? I don?t think she has bacterial sepsis. ?4. Tachycardia.? Controlled with esmolol and Precedex. ?5. Metabolic.? Glucose levels are up because of the increase in the steroid dose.? She?s getting low dose sliding scale insulin. ?6. DVT prophylaxis:? Cut her heparin dose to 5000u bid, given her diminutive size. ?7. Mouth sores.? Start Nystatin bid and Magic Mouthwash bid. ?8. Hyperkalemia.? Was not too worried yesterday with her low phosphate, but the phosphate is rising now.? She may be developing incipient renal failure.? We will start her now on medical management for the hyperkalemia.? If possible, we may be able to put a KO feed tube down for loKelma. ?9. Nutrition.? Ensure has been the main source of her protein and calories.? But it?s making the potassium worse. Prognosis is grim. Critical care time (mult visits to the bedside today; d/w renal):? 80+ min. Physical Exam Vital Signs: Vital Signs: Last Vital Signs Temp 98.2 F 07/11/21 16:00 Pulse 100 07/11/21 19:00 Resp 16 07/11/21 19:00 BP 126/76 07/11/21 19:00 Pulse Ox 94 07/11/21 19:00 Oxygen Flow Rate 60 07/05/21 16:00 Body Mass Index 20.2 Objective Data Labs CBC & Chem 7: 07/11/21 05:29 07/11/21 05:29 Labs: Laboratory Results - last 24 hr 07/10/21 07/10/21 07/10/21 20:39 20:42 20:42 WBC RBC Hgb Hct MCV MCH MCHC RDW Plt Count MPV Absolute Nucleated RBC Nucleated RBC % (auto) VBG pH 7.48 H VBG pCO2 43 VBG pO2 67 VBG HCO3 32 H VBG O2 Saturation 91.0 VBG Base Excess 8.5 Sodium Potassium Chloride Carbon Dioxide Anion Gap BUN Creatinine Estim Creat Clear Calc Estimated GFR POC Glucose Random Glucose Lactic Acid 2.4 H* Lactic Acid Fup @ 2Hr Calcium Phosphorus Magnesium Albumin Procalcitonin 0.29 07/10/21 07/10/21 07/11/21 22:30 23:29 05:26 WBC RBC Hgb Hct MCV MCH MCHC RDW Plt Count MPV Absolute Nucleated RBC Nucleated RBC % (auto) VBG pH 7.50 H VBG pCO2 42 VBG pO2 58 VBG HCO3 33 H VBG O2 Saturation 87.0 VBG Base Excess 9.4 Sodium Potassium Chloride Carbon Dioxide Anion Gap BUN Creatinine Estim Creat Clear Calc Estimated GFR POC Glucose 185 H Random Glucose Lactic Acid Lactic Acid Fup @ 2Hr 2.4 H* Calcium Phosphorus Magnesium Albumin Procalcitonin 07/11/21 07/11/21 07/11/21 05:29 05:29 07:14 WBC 15.7 H RBC 4.06 L Hgb 11.4 L Hct 36.1 L MCV 88.9 MCH 28.1 MCHC 31.6 RDW 14.7 Plt Count 385 MPV 10.7 Absolute Nucleated RBC 0.000 Nucleated RBC % (auto) 0.0 VBG pH VBG pCO2 VBG pO2 VBG HCO3 VBG O2 Saturation VBG Base Excess Sodium 140 Potassium 5.9 H Chloride 101 Carbon Dioxide 31 H Anion Gap 14 BUN 35 H Creatinine 0.69 Estim Creat Clear Calc 42.0 Estimated GFR > 60 POC Glucose 121 H Random Glucose 120 H Lactic Acid Lactic Acid Fup @ 2Hr Calcium 9.2 Phosphorus 4.3 Magnesium 2.0 Albumin 3.2 L Procalcitonin 07/11/21 07/11/21 11:13 16:22 WBC RBC Hgb Hct MCV MCH MCHC RDW Plt Count MPV Absolute Nucleated RBC Nucleated RBC % (auto) VBG pH VBG pCO2 VBG pO2 VBG HCO3 VBG O2 Saturation VBG Base Excess Sodium Potassium Chloride Carbon Dioxide Anion Gap BUN Creatinine Estim Creat Clear Calc Estimated GFR POC Glucose 211 H 221 H Random Glucose Lactic Acid Lactic Acid Fup @ 2Hr Calcium Phosphorus Magnesium Albumin Procalcitonin Microbiology Microbiology Results: Microbiology 07/05/21 14:15 Blood - Venous Blood Culture - Final No growth after 5 days. 07/05/21 14:15 Blood - Venous Blood Culture - Final Coag negative Staphylococcus Quality Stroke Does the patient have a stroke diagnosis?: No VTE Prior VTE?: Yes VTE Risk Level:: Medical - moderate - high VTE Device Contraindication: Treatment Not Indicated VTE Drug Contraindication: N/A - Med Ordered Critical Care Time Critical Care Time (minutes): 90
--- NOTE | 2021-07-11 21:28 | P.PCNCC_ITS ---
Procedures Date of Service Date of Service: 07/11/21 Central Line Placement A quick time-out was made for clarification and proper patient identification, patient was positioned, landmarks were identified, US used to locate a large compressible IJ. The left neck was widely prepped and draped in a full sterile fashion. Ultrasound was used to locate again the left IJ, the vein was cannulated on the 1st pass with an 18 gauge thin needle, dark nonpulsatile blood return was obtained. The wire was threaded, a small incision was made at its base and dilator inserted. Given how small the patient is, a 16 cm triple- lumen central venous catheter was advanced into the vein up to the hub without problems, wired was removed. Ports had good blood return and flushed x3. The catheter was secured with 3 sutures at 3 sites, a Biopatch and dry sterile dressing were applied.Post procedure chest x-ray showed the line to be in good position without pneumothorax. No bleeding or complications noted.: Consent for Procedure: Elective - informed consent obtained (From the patient's granddaughter ( Indigo Gonzales) over the phone) Time out performed: Yes Sterile Technique Used: Yes Patient placed on monitor/pulse ox: Yes MD prep: mask, gown and gloves Central line prep: Chlorhexidine scrub Local anesthesia used: lidocaine 1% (50 mcg IVP of Fentanyl) Amount of anesthesia used (ml): 5 Ultrasound used for placement: Yes Central line lumen inserted: triple Post procedure: sutured in place, good blood return, all ports aspirated, flushed, capped and sterile dressing applied Post procedure x-ray: tip of catheter in good position and no pneumothorax seen Patient tolerated procedure: well and no complications Complications: none and other (Post procedure hypotension; transient likely due to Fentanyl administration used for the procedure)
[2021-07-11 21:57] LABS: Alanine Aminotransferase 43 U/L (0-31); Albumin Level 3.5 g/dL (3.5-5.0); Alkaline Phosphatase 54 U/L (39-117); Anion Gap 14 (12-20); Aspartate Amino Transferase 41 U/L (5-31); Bilirubin Total 0.5 mg/dL (0.0-1.0); Blood Urea Nitrogen 34 mg/dL (9-16); Calcium 8.7 mg/dL (8.4-10.2); Carbon Dioxide 32 mmol/L (22-29); Chloride 100 mmol/L (96-108); Creatinine Clr Calc Pharmacy 39.2; Estimated Glomerular Filt Rate > 60; Glucose Random 182 mg/dL (60-115); Potassium 5.5 mmol/L (3.3-5.1); Sodium 140 mmol/L (135-145); Total Protein 6.1 g/dL (6.5-8.0)
[2021-07-11] MEDS: Doxycycline Hyclate 100 MG in 0.9 % Sodium Chloride 250 ML 166.67 MG IV (22:40)
[2021-07-11] MEDS: acetaZOLAMIDE sodium 500 MG VIAL 250 MG IVPUSH (22:42)
[2021-07-11] MEDS: Sodium Chloride 0.45 % 1,000 ML 42 ML IVCONT (22:43)
[2021-07-11] MEDS: Acetaminophen Supp 650 MG SUPP.RECT PR (22:43)
--- NOTE | 2021-07-11 23:37 | PC.NURSE ---
Assumed care of pt at 1900. Pt was mildly sedated on precedex drip at 0.2 mcg/kg/min and fentanyl drip at 50 mcg/hr. Moans with any care. Portable CXR done and reviewed by Dr An and Cody WARD. Cody called pt's granddaughter to discuss treatment plan. It was decided to place a central line for multiple IV administration and blood draws. Cody performed the procedure at bedside without complication into left IJ. Procedure started at 2100 and completed by 2130. Pt was started on doxycycline and IV fluids. Hart cath placed, #16FR, without complication. Pt tolerated both procedures well. Portable CXR done to confirm placement, read by Cody. Chemistres drawn for Basic Metabolic profile. Potassium 5.5. Will repeat in AM. Esmolol drip infusing to keep HR<110, off at 2230 for HR 70-80's. No acute resp distress on CPAP facemask at 10 and 100% but O2 currently being weaned and now at 75%. .
[2021-07-12] VITALS (37 sets, daily range): BP systolic 78–148; BP diastolic 31–89; PULSE 60–134; RESP 6–44; TEMP 35.7–37.4; O2SAT 86–97; BMI 20.6
[2021-07-12 04:19] LABS: Basophils Percent Auto 0.1 % (0-2); Hematocrit 30.6 % (37-47); Hemoglobin 9.3 g/dl (12.0-16.0); Imm Gran Abs Auto 0.13 X10*3/uL (0.00-0.03); Imm Gran Pct Auto 0.8 % (0.0-0.4); Lymphocytes Absolute Auto 0.6 X10*3/uL (1.2-4.9); Lymphocytes Percent Auto 3.3 % (20-40); MANUAL DIFF FLAG SCAN; Mean Corpuscular HGB Conc 30.4 g/dl (31.0-35.0); Mean Corpuscular Hemoglobin 27.8 pg (27.0-33.0); Mean Corpuscular Volume 91.6 fL (80-98); Mean Platelet Volume 10.3 fL (9.4-12.3); Monocytes Absolute Auto 0.4 X10*3/uL (0.1-1.2); Monocytes Percent Auto 2.5 % (2-11); Neutrophils Percent Auto 93.3 % (45-73); Platelet Count 280 X10*3/uL (160-400); Red Blood Count 3.34 X10*6/uL (4.20-5.50); Red Cell Distribution Width 14.7 % (11.0-16.0); SCAN SMEAR FLAG 1; White Blood Count 17.1 X10*3/uL (4.8-10.8)
[2021-07-12 04:20] LABS: VBG Base Excess 5.6 mmol/L; VBG HCO3 31 mmol/L (22-26); VBG pCO2 51 mmHg; VBG pH 7.39 (7.32-7.43); VBG pO2 43 mmHg
[2021-07-12 04:29] LABS: D Dimer 888 NG/ML
[2021-07-12 04:30] LABS: Venous Blood Gas Refer to POC result
[2021-07-12 04:39] LABS: SLIDE REVIEW VERIFIED
[2021-07-12 04:50] LABS: Alanine Aminotransferase 35 U/L (0-31); Alkaline Phosphatase 48 U/L (39-117); Anion Gap 12 (12-20); Aspartate Amino Transferase 34 U/L (5-31); Bilirubin Total 0.5 mg/dL (0.0-1.0); Blood Urea Nitrogen 38 mg/dL (9-16); C Reactive Protein 10.87 mg/dL (< or = 0.50); Calcium 8.2 mg/dL (8.4-10.2); Carbon Dioxide 31 mmol/L (22-29); Chloride 102 mmol/L (96-108); Creatinine Clr Calc Pharmacy 38.7; Estimated Glomerular Filt Rate > 60; Glucose Random 164 mg/dL (60-115); Phosphorus 4.5 mg/dL (2.7-4.5); Potassium 5.2 mmol/L (3.3-5.1); Sodium 140 mmol/L (135-145); Total Protein 5.4 g/dL (6.5-8.0)
[2021-07-12 05:21] LABS: Ferritin 1158 ng/mL (10-250)
[2021-07-12] MEDS: methylPREDNISolone Sod Succ 125 MG/2 ML VIAL 60 MG IVPUSH (05:21)
[2021-07-12] MEDS: Albumin Human 25 % 100 ML IV ×2 (05:25→05:59)
--- NOTE | 2021-07-12 05:39 | PC.NURSE ---
Bp started to drop and esmolol drip shut off. Bp would go up if pt was stimulated but eventually Bp came down again and fentanyl drip was shut off. Pt was mostly calm except when care was rendered. Precedex drip continued at 0.2 mcg/kg/hr. Cody WARD notified of low BP and am labs drawn early, 406. Albumin level low, 3.0. Two bottles of albumin ordered and first one infusing at this time. Monitor shows V-paced rhythm and occ AV-paced. U/O is 25-45 ml/hr
[2021-07-12 07:47] LABS: Glucose, Whole Blood 148 mg/dL (60-115)
[2021-07-12] MEDS: Doxycycline Hyclate 100 MG in 0.9 % Sodium Chloride 250 ML 166.67 MG IV ×2 (08:37→21:52)
[2021-07-12] MEDS: Thiamine HCL 200 MG/2 ML VIAL IVPUSH (08:38)
[2021-07-12] MEDS: Heparin Sodium,Porcine 5,000 UNIT/ML VIAL 5000 UNIT SUBCUT ×2 (08:38→21:53)
--- NOTE | 2021-07-12 08:55 | MHC.CLN ---
F/U PO INTAKE 25% DIET RX: CHOPPED-PT MAY BENEFIT FROM LOW K+ DIET PT RECEIVING ENSURE AND DOMINICK TO INCREASE KCALS AND PROMOTE WOUND HEALING, HOWEVER PT'S K+ IS RISING NSG NOTES PT ENJOYS ENSURE AND CUT UP BANANAS (ALSO HIGH IN K+) RECOMMEND CHANGING SUPPLEMENT TO ENSURE CLEAR TID TO PROVIDE 720KCALS, 24G PROTEIN. NO K+ IN THIS SUPPLEMENT WILL ADD LOW K+ TO DIET ORDER CONTINUE TO MONITOR PO INTAKE CLOSELY
[2021-07-12] MEDS: acetaZOLAMIDE sodium 500 MG VIAL 250 MG IVPUSH (09:48)
[2021-07-12] MEDS: Aspirin 81 MG TAB.CHEW PO (09:48)
[2021-07-12] MEDS: dexmedeTOMIDidine HCL/NS 400 MCG/100 ML INFUS..BTL IVCONT (09:51)
--- NOTE | 2021-07-12 10:11 | MHC.CM.PN ---
Pt remains in ICU with COVID: worsening condition: now on IV ATB for ? aspiration PNA - on NIPPV and removing it at times per nursing - had a triple lumen placed, worsening renal function and rising VBG CO2. MD states this is a grave sign and lowers the prognosis for survival. He will request a family meeting to discuss goals of care. Pt was originally slated to return to home with family. CM to follow for changes of d/c plan
[2021-07-12] MEDS: Albumin Human 25 % 50 ML 100 ML IV (11:06)
[2021-07-12 11:18] LABS: Glucose, Whole Blood 195 mg/dL (60-115)
--- NOTE | 2021-07-12 12:28 | PM.CCPN ---
Subjective Subjective Date of Service: 07/12/21 Critical Care Time (minutes): 50 Comment: Mrs. Dmitri Miramontes was admitted to the ICU on July 05 with acute hypoxemic respiratory failure secondary to COVID pneumonia. The patient is an 86-year-old Bel[place]ian speaking female with past medical history of Crohn's disease, complete heart block status post pacemaker, and history of DVT not on any anticoagulation.? She?s not on any medications at all at home.? Prior chest xrays have shown a large hiatal hernia and multiple large gall stones.? The patient lives with a granddaughter.? Her within the last year.? The patient ambulates at home with a walker.? She requires help with bathing, dressing, and toileting. The patient was first diagnosed with COVID-19 infection on June 30 in our ED when the family brought her to the emergency room because of 4 days of cold symptoms, cough, and fever.? (I.e. symptom onset date approximately June 26.)? Other family members were sick with the same symptoms.? The patient had not been vaccinated for COVID-19.? In the ED that day, sat was 94% on room air.? Chest x-ray showed no infiltrates and was basically unchanged from CXR of February,.? The patient was discharged home with a prescription for Zithromax and dexamethasone, which according to family, she had been taking. HISTORY OF PRESENT ILLNESS:? On July 05, the patient?s symptoms got worse, becoming? more short of breath.? EMS was called.? At the scene, sat was 81% on room air.? She was placed on a NRBFM and BIBA to the ED. On admission, the patient was reportedly unkempt and had a stage II decubitus.? She was mildly tachypneic and on 60% HFNC was sat?ing 89%.? CXR showed bilat hazy infitrates.? CTPA (my reading) showed [id number]-dceleyly patchy, streaky and groundglass opacities scattered throughout both lungs.? The LLL and lingula were compressed by the large hiatal hernia.? There was no PE.? The main PA was enlarged, the RV was normal sized, the RA was enlarged.? The chronic large hiatal hernia contained stomach and some of the transverse and descending colon.? The gallbladder contained multiple small to large sized stones. Labs were signif for WBC 11, lymphocytes 4.5, BUN/creat 18/0.8, bicarb 21, AST 79, ALT 48, LDH 433, alb 3.4, lactic acid 3.5, BNP 209, D-dimer of 2393. The patient was admitted to the ICU for hypoxic respiratory failure 2? to COVID pneumonia, with possible requirement for noninvasive ventilation.? She was treated with the usual Decadron.? DNR/DNI status was written.? FiO2 improved to 50% but then deteriorated.? On 07/08, her steroids were increased to Solu-Medrol 60 mg bid.? Ivermectin, ASA, thiamine, and vit D were added.? ED Penaloza spoke with the family that night.? We are maintaining DNR/DNI status.? Over the subsequent 4 days she has been on 100% FiO2 on the HFNC.? We added fentanyl for WOB. Her oxygenation and overall condition deteriorated throughout the day yesterday, and yesterday afternoon we had to put her on CPAP and Precedex.? We also added doxycycline bec of her rising WBC.? Her potassium was also rising, with slight increase in her renal indices and phosphorus. ?A central line was placed last night and she was given fluids.? Her potassium came down on its own. ?VBG this morning showed david hypercarbia for the 1st time:? 7.39/51/+5, with the patient on low-dose Diamox. ?Her blood pressure was down this morning, probably bec of the Precedex.? She was started on low dose Levophed. ?She is still easily arousable but (on the Precedex) not nearly as animated as she has been.? Seems less anxious.? She was still able to take pudding, but drinking fluids made her cough. Currently she?s on Precedex at 0.2ug, and Levophed 0.07ug.? HR 86, SR w V-pacing.? BP is 122/66.? She continues afebrile.? We were able to get her off the CPAP on 2 high-flow nasal cannula this morning.? On 50 L/90%, the respiratory rate is about 40, sat is 92%.? Work of breathing is mild-moderately increased. ?No JVD at 30?.? Chest still CTA with normal exp phase.? Regular rate and rhythm, with normal-sounding S1 and S2, with no murmur or gallops.? Abdomen is benign.? She has no edema. LABORATORY DATA:? As below.? Notably, white count up further.? BUN/creat up very slightly.? Potassium is down to 5.2.? POCs in the 100s.? Phos is up to 4.5. MICROBIOLOGY:? Blood cultures drawn 07/10 are negative. CXR last night shows worse consolidation on the right; no subcutaneous emphysema, pneumomediastinum, or pneumothorax. IMPRESSION: ?1. Bilat COVID pneumonia with ARDS.? Chances of survival now probably about 1%.? Started her this morning on 3-day pulse steroids. ?ED Penaloza spoke with family last night, they wished to proceed with the CVL and all other treatment, but no intubation or cardiopulmonary resuscitation. ?2. Acute hypoxemic respiratory failure.? Secondary to above.? Rx NIV and opiates prn. ?3. ID.? No fever, blood cultures negative.? But in view of the WBC and worsening condition, we added doxycycline. ?Repeating her lactic acid and PCT today.? She may have viral sepsis.? She does not have bacterial sepsis. ? ?4. Tachycardia.? Controlled with Precedex. ?5. Metabolic.? Glucose levels up because of the increase in the steroid dose.? She?s getting low dose sliding scale insulin.? Continue Diamox until the base excess is in low single digits. ?6. Hyperkalemia.? She may be developing incipient renal failure.? We?ll minimize the potassium in any feeds.? If possible, we may be able to put a KO feed tube down for loKelma. ?7. DVT prophylaxis:? Cut her heparin dose to 5000u bid, given her diminutive size. ?8. Mouth sores.? On Nystatin bid and Magic Mouthwash bid. ?9. Nutrition.? Can?t take the ensure anymore.? We can get some pudding into her.? But calorie and protein intake will be minimal unless we put a feeding tube in.? Will d/w family tonite. Prognosis is grim.? For the first time, when I examined her today, I got the feeling that we?re torturing her.? Given the slim chance for survival, I don?t think we should be doing this.? Will talk further with family again raquel. Critical care time? 50+ min. ? Physical Exam Vital Signs: Vital Signs: Last Vital Signs Temp 97.0 F 07/12/21 12:00 Pulse 90 07/12/21 12:00 Resp 26 H 07/12/21 12:00 BP 113/51 L 07/12/21 12:00 Pulse Ox 86 L 07/12/21 12:00 Oxygen Flow Rate 60 07/05/21 16:00 Body Mass Index 20.6 Objective Data Labs CBC & Chem 7: 07/12/21 04:07 07/12/21 04:07 Labs: Laboratory Results - last 24 hr 07/11/21 07/11/21 07/12/21 16:22 21:20 04:07 WBC 17.1 H RBC 3.34 L Hgb 9.3 L Hct 30.6 L MCV 91.6 MCH 27.8 MCHC 30.4 L RDW 14.7 Plt Count 280 D MPV 10.3 Immature Gran % (Auto) 0.8 H Neut % (Auto) 93.3 H Lymph % (Auto) 3.3 L [place] % (Auto) 2.5 Eos % (Auto) 0.0 Baso % (Auto) 0.1 Lymph # (Auto) 0.6 L [place] # (Auto) 0.4 Eos # (Auto) 0.0 Baso # (Auto) 0.0 Abs Immat Gran (auto) 0.13 H Absolute Neuts (auto) 16.0 H Absolute Nucleated RBC 0.000 Nucleated RBC % (auto) 0.0 Smear Tech's Comments VERIFIED D-Dimer VBG pH VBG pCO2 VBG pO2 VBG HCO3 VBG O2 Saturation VBG Base Excess Sodium 140 Potassium 5.5 H Chloride 100 Carbon Dioxide 32 H Anion Gap 14 BUN 34 H Creatinine 0.74 Estim Creat Clear Calc 39.2 Estimated GFR > 60 POC Glucose 221 H Random Glucose 182 H D Calcium 8.7 Phosphorus Ferritin Total Bilirubin 0.5 AST 41 H ALT 43 H Alkaline Phosphatase 54 C-Reactive Protein Total Protein 6.1 L Albumin 3.5 07/12/21 07/12/21 07/12/21 04:07 04:07 04:12 WBC RBC Hgb Hct MCV MCH MCHC RDW Plt Count MPV Immature Gran % (Auto) Neut % (Auto) Lymph % (Auto) [place] % (Auto) Eos % (Auto) Baso % (Auto) Lymph # (Auto) [place] # (Auto) Eos # (Auto) Baso # (Auto) Abs Immat Gran (auto) Absolute Neuts (auto) Absolute Nucleated RBC Nucleated RBC % (auto) Smear Tech's Comments D-Dimer 888 VBG pH 7.39 VBG pCO2 51 VBG pO2 43 VBG HCO3 31 H VBG O2 Saturation 69.0 VBG Base Excess 5.6 Sodium 140 Potassium 5.2 H Chloride 102 Carbon Dioxide 31 H Anion Gap 12 BUN 38 H Creatinine 0.75 Estim Creat Clear Calc 38.7 Estimated GFR > 60 POC Glucose Random Glucose 164 H Calcium 8.2 L Phosphorus 4.5 Ferritin 1158 H Total Bilirubin 0.5 AST 34 H ALT 35 H Alkaline Phosphatase 48 C-Reactive Protein 10.87 H Total Protein 5.4 L Albumin 3.0 L 07/12/21 07/12/21 07:28 11:03 WBC RBC Hgb Hct MCV MCH MCHC RDW Plt Count MPV Immature Gran % (Auto) Neut % (Auto) Lymph % (Auto) [place] % (Auto) Eos % (Auto) Baso % (Auto) Lymph # (Auto) [place] # (Auto) Eos # (Auto) Baso # (Auto) Abs Immat Gran (auto) Absolute Neuts (auto) Absolute Nucleated RBC Nucleated RBC % (auto) Smear Tech's Comments D-Dimer VBG pH VBG pCO2 VBG pO2 VBG HCO3 VBG O2 Saturation VBG Base Excess Sodium Potassium Chloride Carbon Dioxide Anion Gap BUN Creatinine Estim Creat Clear Calc Estimated GFR POC Glucose 148 H 195 H Random Glucose Calcium Phosphorus Ferritin Total Bilirubin AST ALT Alkaline Phosphatase C-Reactive Protein Total Protein Albumin Microbiology Microbiology Results: Microbiology 07/10/21 20:20 Blood - Venous Blood Culture - Preliminary No growth after 24 hours. 07/10/21 20:20 Blood - Venous Blood Culture - Preliminary No growth after 24 hours. 07/05/21 14:15 Blood - Venous Blood Culture - Final No growth after 5 days. 07/05/21 14:15 Blood - Venous Blood Culture - Final Coag negative Staphylococcus Quality Stroke Does the patient have a stroke diagnosis?: No VTE Prior VTE?: Yes VTE Risk Level:: Medical - moderate - high VTE Device Contraindication: Treatment Not Indicated VTE Drug Contraindication: N/A - Med Ordered Critical Care Time Critical Care Time (minutes): 60
[2021-07-12] MEDS: HYDROmorphone HCl 0.5 MG/0.5 ML SYRINGE IVPUSH ×3 (13:16→21:08)
--- NOTE | 2021-07-12 13:21 | PC.NURSE ---
S/E Afebrile, WBC up to 17.1, BC - x2 ; Continued on Doxy q12 Continued on Precedex gtt ; Arousable to name, anxious with care, yelling out Both AV & V pacing - MD aware ; HR controlled 70-80's SBP 70's - started on Levophed gtt ; Albumin 50cc administered x1 dose L IJ TLC patent - dressing changed PRN Dilaudid administered for increased WOB, RR 40's CPAP removed and patient back on Highflow 90% 50 L - Spo2 92% Started on Solumedrol 200mg IV x12 doses ; Repeat VBGs 1330 - 7.41/37/44/24 Abdomen soft, nontender, lastr BM 07/10 ; H&H down to 9.3 & 30.6 - MD aware Poor PO intake - tolerated pudding but not thin liquids - coughing w/ sips No need for Speech eval per MD Hart patent - urine output 40cc/hr Stg 2 L buttocks - triad reapplied Bathed, repo q2hr, prevlon pad & air loss mattress in place HCP updated by this RN with electric motor assembler and tester regarding patients condition
[2021-07-12 13:29] LABS: VBG Base Excess -0.1 mmol/L; VBG HCO3 24 mmol/L (22-26); VBG pCO2 37 mmHg; VBG pH 7.41 (7.32-7.43); VBG pO2 44 mmHg
[2021-07-12 13:54] LABS: Lactic Acid 1.6 mmol/L (0.5-2.0)
[2021-07-12 14:02] LABS: B Type Natriuretic Peptide 551 pg/mL (<100)
[2021-07-12 14:05] LABS: Anion Gap 18 (12-20)
[2021-07-12 14:06] LABS: Blood Urea Nitrogen 36 mg/dL (9-16); Calcium 8.5 mg/dL (8.4-10.2); Carbon Dioxide 24 mmol/L (22-29); Chloride 103 mmol/L (96-108); Creatinine Clr Calc Pharmacy 38.2; Estimated Glomerular Filt Rate > 60; Glucose Random 215 mg/dL (60-115); Potassium 3.8 mmol/L (3.3-5.1); Sodium 141 mmol/L (135-145)
[2021-07-12 14:36] LABS: Procalcitonin 0.27 ng/mL
[2021-07-12 16:05] LABS: Venous Blood Gas Refer to POC result
[2021-07-12] MEDS: Nystatin Oral Susp 500,000 UNIT/5 ML ORAL.SUSP 500000 UNIT PO (18:20)
[2021-07-12 19:39] LABS: Glucose, Whole Blood 186 mg/dL (60-115)
[2021-07-12] MEDS: Insulin Lispro 100 UNIT/ML 3 ML VIAL SUBCUT (21:53)
[2021-07-12] MEDS: Esmolol HCl/NaCl Iso 2,500 MG/250 ML IV.SOLN 14.13 MG IVCONT (21:54)
[2021-07-12 22:25] LABS: Glucose, Whole Blood 277 mg/dL (60-115)
[2021-07-12] MEDS: HYDROmorphone HCl 1 MG/ML SYRINGE IVPUSH ×2 (22:39→22:53)
[2021-07-12] MEDS: LORazepam 2 MG/ML VIAL 0.25 MG IVPUSH (22:55)
--- NOTE | 2021-07-12 23:02 | P.ACPN_ITS ---
Advanced Care Planning Note Advanced Care Planning Note Discussed with: family member(s) (spoke to ) Time spent (in minutes): 60 Narrative: I had a long discussion with the patient's family member (granddaughter ) Ms. Indigo Gonzales with whom I reviewed in detail the patient's current clinical scenario, we reviewed her labs, images at length and her unfortunate deterioration. We discussed goals of care in detail and at the end we agreed that he would be best for them to come and see the patient prior to making any further decisions. 1030 pm Family members are in the hospital, patient's granddaughter and great granddaughter are here. At this point we have avoided given Precedex and more Dilaudid for I wanted them to see the patient in her natural state. Currently patient is on high-flow 50 L with an FiO2 of 90% and setting 80s 6-87%. Heart r ate is 126 and respiratory rate between 30 and 40. patient is complaining of diffuse pain, moaning. Patient is not oriented and family members are able to appreciate this. Patient was placed on BiPAP, given Dilaudid for comfort. 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 The patient's nurse Matthew RN was a witness to this decision. At this point all medical care has been withdrawn, Dilaudid given for pain, Ativan as needed for anxiety. Patient was noted to be breathless and subsequently did not have a pulse or apical sounds at 11:42 p.m. Patient has dilated pupils, glossy eyes and no corneal reflux. She was pronounced at this point. On the monitor the patient still has electrical activity because she has a pacemaker, magnet was applied over it and subsequently removed. 1210 am Patient's granddaughter was notified of her . The belongings will go with the patient to the home of their choice which in this case is [facility] in [facility]. Total time spent with family and patient 60 minutes Problems Discussed (1) Acute respiratory distress syndrome (ARDS) due to COVID-19 virus: (2) Acute respiratory failure with hypoxia: (3) Crohn's disease:
--- NOTE | 2021-07-12 23:52 | PC.NURSE ---
Addendum entered by Shelley Jenkins RN 07/13/21 00:15: Family notified by Bob WARD. home will be [address] on [facility] in [place]. Belongings, including jewelry and dentures, placed in body bag with patient, per family request. Original Note: Assumed care at 15:00. Patient was alert, anxious especially with nursing maneuvers, but able to state name and date of as well as approximate location. Frequently describned dry oral mucosa, was given mouth care with frequency. There was some discussion of patient's inability to handle thin liquids, but was ok to eat, diet had been mechanical soft, liquids thickened to nectar, then honey thick and patient was able to swallow these, but only in small amount for dinner. POC was `186 at dinner and insulin was held as patient had very small amount of caloric intake. Patient family was contacted per request of PA, and a discussion was had about seeing patient before having family meeting to discuss goals of care. Nursing supervisor modern languages contacted and authorized [facility] and one other close family member to visit patient in full covid precautions, and education was provided to family regarding safety with good teachback. family was guided in de-gowning with good effect. 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 Care was withdrawn per orders of PA and in accordance with family meeting after patient was administered 1 mg of dilaudid IV, followed by a subsequent dose of IV dilaudid and then a dose of ativan IV with a good effect of patient's appearing more comfortable with regard to work of breathing. After patient removed mask, a small drink of water was requested and given, and patient's respiratory rate lowered gradually over 44 minutes, mostly staying around 16-18 RPM. Patient became apneic around 11:42 pm, and PA was notified, when her belongings were gathered and placed with her body, and care was reliquished to other RN. PA is now entering room to further assess. [place] donor services was contacted, confirmation #[id number]
--- NOTE | 2021-07-13 01:02 | P.DS_ITS ---
DS: Providers Provider Date of Service: 07/13/21 Date of admission: 07/05/21 16:56 Primary care physician: Iris Martinez MD DS: Diagnosis Discharge Diagnosis (1) Acute respiratory distress syndrome (ARDS) due to COVID-19 virus: Status: Acute (2) Acute respiratory failure with hypoxia: Status: Acute (3) Crohn's disease: Status: Acute DS: Medications Discharge Medications Home Medications: Home Medications Medication Instructions Recorded Confirmed ergocalciferol (vitamin D2) 1,250 1,250 mcg PO QWEEK 07/09/21 07/09/21 mcg (50,000 unit) capsule (Vitamin D2) fluticasone propionate 50 2 spray INTRANASAL DAILY PRN MDD 2 07/09/21 07/09/21 mcg/actuation nasal spray,suspension wzoaehyx-lglhxbt-hikg-lutein tablet 1 tab PO DAILY 07/09/21 07/09/21 Previous Rx's Medication Instructions Recorded azithromycin 250 mg tablet 250 mg PO DAILY 4 Days #4 tab 06/30/21 (Zithromax) dexamethasone 6 mg tablet 6 mg PO DAILY #7 tab 06/30/21 (Decadron) DS: Summary Hospital Course Hospital Course: ADMISSION/DISCHARGE DIAGNOSIS: ?1. Bilat COVID pneumonia with ARDS.? ?2. Acute hypoxemic respiratory failure.? Secondary to above. ?3. ID.? No fever, blood cultures negative.? But in view of the WBC and worsening condition, we added doxycycline ?4. Tachycardia.? Controlled with Precedex. ?5. Steroid Induced Hyperglycemia ?6. MARCOS due to vol depletion in the setting of insensible losses. ?7. Hyperkalemia due to MARCOS ADVANCE CARE MEETINGS AND CLOTH HAND DECISION I had a long discussion with the patient's family member (granddaughter ) Ms. Indigo Gonzales with whom I reviewed in detail the patient's? current clinical scenario, we reviewed her labs, images at length and her unfortunate deterioration. ?We discussed goals of care in detail and at the end we agreed that he would be best for them to come and see the patient prior to making any further decisions. 1030 pm ? Family members are in the hospital, patient's granddaughter and great granddaughter are here.? At this point we have avoided given Precedex and more Dilaudid for I wanted? them to see the patient in her natural state.? Currently patient is on high-flow 50 L with an FiO2 of 90% and setting 80s 6-87%.? Heart rate is 126 and respiratory rate between 30 and 40. patient is complaining of diffuse pain, moaning.? Patient is not oriented and family members are able to appreciate this. Patient was placed on BiPAP, given Dilaudid for comfort. After approximately? 30-45 minutes of visiting with the patient is a in their goodbyes, we had a meeting and they clearly state that they noted the patient is suffering a great deal, they are aware that the patient is losing her bottle to her current illness and they prefer that the patient passes to of better live in a humane, known suffering weight therefore after as hearing many questions they had aching, they decided to make the patient CLOTH HAND old.? The patient's nurse Matthew WU was a witness to this decision. ?At this point all medical care has been withdrawn, Dilaudid given for pain, Ativan as needed for anxiety. Patient was noted to be breathless and subsequently did not have a pulse or apical sounds at 11:42 p.m. ? Patient has dilated pupils, glossy eyes and no corneal reflux.? She was pronounced at this point. On the monitor the patient still has electrical activity because she has a pacemaker, magnet was applied over it and subsequently removed. 1210 am ? Patient's granddaughter was notified of her .? The belongings will go with the patient to the home of their choice which in this case is [facility] in [facility]. HPI / HOSPITAL COURSE: The patient is an 86-year-old Frisian speaking female with past medical history of Crohn's disease, complete heart block status post pacemaker, and history of DVT not on any anticoagulation.? She?s not on any medications at all at home.? Prior chest xrays have shown a large hiatal hernia and multiple large gall stones.? The patient lives with a granddaughter.? Her within the last year.? The patient ambulates at home with a walker.? She requires help with bathing, dressing, and toileting. The patient was first diagnosed with COVID-19 infection on June 30 in our ED when the family brought her to the emergency room because of 4 days of cold symptoms, cough, and fever.? (I.e. symptom onset date approximately June 26.)? Other family members were sick with the same symptoms.? The patient had not been vaccinated for COVID-19.? In the ED that day, sat was 94% on room air.? Chest x- ray showed no infiltrates and was basically unchanged from CXR of February,.? The patient was discharged home with a prescription for Zithromax and dexamethasone, which according to family, she had been taking. On July 05, the patient?s symptoms got worse, becoming? more short of breath.? EMS was called.? At the scene, sat was 81% on room air.? She was placed on a NRBFM and BIBA to the ED. On admission, the patient was reportedly unkempt and had a stage II decubitus.? She was mildly tachypneic and on 60% HFNC was sat?ing 89%.? CXR showed bilat hazy infitrates.? CTPA (my reading) showed [id number] patchy, streaky and groundglass opacities scattered throughout both lungs.??The LLL and lingula were compressed by the large hiatal hernia.? There was no PE.? The main PA was enlarged, the RV was normal sized, the RA was enlarged.? The chronic large hiatal hernia contained stomach and some of the transverse and descending colon.? The gallbladder contained multiple small to large sized stones. Labs were signif for WBC 11, lymphocytes 4.5, BUN/creat 18/0.8, bicarb 21, AST 79, ALT 48, LDH 433, alb 3.4, lactic acid 3.5, BNP 209, D-dimer of 2393. The patient was admitted to the ICU for hypoxic respiratory failure 2? to COVID pneumonia, with possible requirement for noninvasive ventilation.? She was treated with the usual Decadron.? DNR/DNI status was written.? FiO2 improved to 50% but then deteriorated.? On 07/08, her steroids were increased to Solu-Medrol 60 mg bid.? Ivermectin, ASA, thiamine, and vit D were added.? ED Pen[facility] spoke with the family that night.? We are maintaining DNR/DNI status.? Over the subsequent 4 days she has been on 100% FiO2 on the HFNC.? We added fentanyl for WOB. Her oxygenation and overall condition deteriorated throughout the day yesterday, and yesterday afternoon we had to put her on CPAP and Precedex.? We also added doxycycline bec of her rising WBC.? Her potassium was also rising, with slight increase in her renal indices and phosphorus. ?A central line was placed last night and she was given fluids.? Her potassium came down on its own. ?VBG this morning showed david hypercarbia for the 1st time:? 7.39/51/+5, with the patient on low-dose Diamox. ?Her blood pressure was down this morning, probably bec of the Precedex.? She was started on low dose Levophed. ?She is still easily arousable but (on the Precedex) not nearly as animated as she has been.? Seems less anxious.? She was still able to take pudding, but drinking fluids made her cough. Currently she?s on Precedex at 0.2ug, and Levophed 0.07ug.? HR 86, SR w V- pacing.? BP is 122/66.? She continues afebrile.? We were able to get her off the CPAP on 2 high-flow nasal cannula this morning.? On 50 L/90%, the respiratory rate is about 40, sat is 92%.? Work of breathing is mild-moderately increased. ?No JVD at 30?.? Chest still CTA with normal exp phase.? Regular rate and rhythm, with normal-sounding S1 and S2, with no murmur or gallops.? Abdomen is benign.? She has no edema. LABORATORY DATA:? As below.? Notably, white count up further.? BUN/creat up very slightly.? Potassium is down to 5.2.? POCs in the 100s.? Phos is up to 4.5. MICROBIOLOGY:? Blood cultures drawn 07/10 are negative. CXR: last night shows worse consolidation on the right; no subcutaneous emphysema, pneumomediastinum, or pneumothorax. Time Spent with Patient Time attestation: Total time spent providing and/or coordinating discharge services: Discharge coordination time: Greater than 30 minutes Quality: Stroke Does the patient have a stroke diagnosis?: No Physical Exam Vital Signs: Vital Signs: Last Vital Signs Temp 99.3 F 07/12/21 22:00 Pulse 100 07/12/21 23:00 Resp 6 L 07/12/21 23:00 BP 148/76 H 07/12/21 22:00 Pulse Ox 97 07/12/21 22:00 Oxygen Flow Rate 60 07/05/21 16:00 Body Mass Index 20.6 DS: Data Data Completed and Pending Labs on day of discharge: Laboratory Results - last 24 hr 07/12/21 07/12/21 07/12/21 04:07 04:07 04:07 WBC 17.1 H RBC 3.34 L Hgb 9.3 L Hct 30.6 L MCV 91.6 MCH 27.8 MCHC 30.4 L RDW 14.7 Plt Count 280 D MPV 10.3 Immature Gran % (Auto) 0.8 H Neut % (Auto) 93.3 H Lymph % (Auto) 3.3 L [place] % (Auto) 2.5 Eos % (Auto) 0.0 Baso % (Auto) 0.1 Lymph # (Auto) 0.6 L [place] # (Auto) 0.4 Eos # (Auto) 0.0 Baso # (Auto) 0.0 Abs Immat Gran (auto) 0.13 H Absolute Neuts (auto) 16.0 H Absolute Nucleated RBC 0.000 Nucleated RBC % (auto) 0.0 Smear Tech's Comments VERIFIED D-Dimer 888 VBG pH VBG pCO2 VBG pO2 VBG HCO3 VBG O2 Saturation VBG Base Excess Sodium 140 Potassium 5.2 H Chloride 102 Carbon Dioxide 31 H Anion Gap 12 BUN 38 H Creatinine 0.75 Estim Creat Clear Calc 38.7 Estimated GFR > 60 POC Glucose Random Glucose 164 H Lactic Acid Calcium 8.2 L Phosphorus 4.5 Ferritin 1158 H Total Bilirubin 0.5 AST 34 H ALT 35 H Alkaline Phosphatase 48 C-Reactive Protein 10.87 H B-Natriuretic Peptide Total Protein 5.4 L Albumin 3.0 L Procalcitonin 07/12/21 07/12/21 07/12/21 04:12 07:28 11:03 WBC RBC Hgb Hct MCV MCH MCHC RDW Plt Count MPV Immature Gran % (Auto) Neut % (Auto) Lymph % (Auto) [place] % (Auto) Eos % (Auto) Baso % (Auto) Lymph # (Auto) [place] # (Auto) Eos # (Auto) Baso # (Auto) Abs Immat Gran (auto) Absolute Neuts (auto) Absolute Nucleated RBC Nucleated RBC % (auto) Smear Tech's Comments D-Dimer VBG pH 7.39 VBG pCO2 51 VBG pO2 43 VBG HCO3 31 H VBG O2 Saturation 69.0 VBG Base Excess 5.6 Sodium Potassium Chloride Carbon Dioxide Anion Gap BUN Creatinine Estim Creat Clear Calc Estimated GFR POC Glucose 148 H 195 H Random Glucose Lactic Acid Calcium Phosphorus Ferritin Total Bilirubin AST ALT Alkaline Phosphatase C-Reactive Protein B-Natriuretic Peptide Total Protein Albumin Procalcitonin 07/12/21 07/12/21 07/12/21 13:15 13:15 13:15 WBC RBC Hgb Hct MCV MCH MCHC RDW Plt Count MPV Immature Gran % (Auto) Neut % (Auto) Lymph % (Auto) [place] % (Auto) Eos % (Auto) Baso % (Auto) Lymph # (Auto) [place] # (Auto) Eos # (Auto) Baso # (Auto) Abs Immat Gran (auto) Absolute Neuts (auto) Absolute Nucleated RBC Nucleated RBC % (auto) Smear Tech's Comments D-Dimer VBG pH VBG pCO2 VBG pO2 VBG HCO3 VBG O2 Saturation VBG Base Excess Sodium 141 Potassium 3.8 D Chloride 103 Carbon Dioxide 24 Anion Gap 18 BUN 36 H Creatinine 0.76 Estim Creat Clear Calc 38.2 Estimated GFR > 60 POC Glucose Random Glucose 215 H Lactic Acid 1.6 Calcium 8.5 Phosphorus Ferritin Total Bilirubin AST ALT Alkaline Phosphatase C-Reactive Protein B-Natriuretic Peptide 551 H Total Protein Albumin Procalcitonin 07/12/21 07/12/21 07/12/21 13:15 13:22 18:48 WBC RBC Hgb Hct MCV MCH MCHC RDW Plt Count MPV Immature Gran % (Auto) Neut % (Auto) Lymph % (Auto) [place] % (Auto) Eos % (Auto) Baso % (Auto) Lymph # (Auto) [place] # (Auto) Eos # (Auto) Baso # (Auto) Abs Immat Gran (auto) Absolute Neuts (auto) Absolute Nucleated RBC Nucleated RBC % (auto) Smear Tech's Comments D-Dimer VBG pH 7.41 VBG pCO2 37 VBG pO2 44 VBG HCO3 24 VBG O2 Saturation 73.0 VBG Base Excess -0.1 Sodium Potassium Chloride Carbon Dioxide Anion Gap BUN Creatinine Estim Creat Clear Calc Estimated GFR POC Glucose 186 H Random Glucose Lactic Acid Calcium Phosphorus Ferritin Total Bilirubin AST ALT Alkaline Phosphatase C-Reactive Protein B-Natriuretic Peptide Total Protein Albumin Procalcitonin 0.27 07/12/21 21:17 WBC RBC Hgb Hct MCV MCH MCHC RDW Plt Count MPV Immature Gran % (Auto) Neut % (Auto) Lymph % (Auto) [place] % (Auto) Eos % (Auto) Baso % (Auto) Lymph # (Auto) [place] # (Auto) Eos # (Auto) Baso # (Auto) Abs Immat Gran (auto) Absolute Neuts (auto) Absolute Nucleated RBC Nucleated RBC % (auto) Smear Tech's Comments D-Dimer VBG pH VBG pCO2 VBG pO2 VBG HCO3 VBG O2 Saturation VBG Base Excess Sodium Potassium Chloride Carbon Dioxide Anion Gap BUN Creatinine Estim Creat Clear Calc Estimated GFR POC Glucose 277 H Random Glucose Lactic Acid Calcium Phosphorus Ferritin Total Bilirubin AST ALT Alkaline Phosphatase C-Reactive Protein B-Natriuretic Peptide Total Protein Albumin Procalcitonin Preliminary micro results at discharge 07/10/21 20:20 Blood Culture - Preliminary Blood - Venous No growth after 48 hours. 07/10/21 20:20 Blood Culture - Preliminary Blood - Venous No growth after 48 hours. Discharge Plan Discharge Date/Time: 07/12/21 23:42 Patient Disposition: Referrals: Iris Martinez MD [Primary Care Provider] - 1 Week Discharge Medications: No Action dexamethasone [Decadron] 6 mg tablet 6 mg PO DAILY Qty: 7 RF: 0 azithromycin [Zithromax] 250 mg tablet 250 mg PO DAILY 4 Days Qty: 4 RF: 0 ergocalciferol (vitamin D2) [Vitamin D2] 1,250 mcg (50,000 unit) Capsule 1,250 mcg PO QWEEK RF: 0 fluticasone propionate 50 mcg/actuation [place],Suspension 2 spray INTRANASAL DAILY MDD 2 PRN (Reason: Dry Nasal Passages) RF: 0 Centrum Silver Ultra Women's Tablet 1 tab PO DAILY RF: 0 Discharge Date/Time: 07/13/21 00:14
--- NOTE | 2021-07-24 13:12 | MHC.CDI.RETR ---
Documented by User: Vivian Phipps RN 07/24/21 13:17 Retrospective Query Please clarify if you have treated a probable/suspected/likely or confirmed: -Location of the ulcer/wound -Please specify -Other -Unable to determine Use of terms such as suspected, likely, concern for, or probable (associated with a specific diagnosis that is being evaluated, monitored, or treated as if it exists) are acceptable and can be coded in the inpatient setting, when documented at the time of discharge. PLEASE DO NOT DELETE/MODIFY EXISTING CONTENT Additional information is needed in order to code to the highest accuracy and appropriate Severity of Illness (SOI). Please clarify the information noted below in your progress notes and discharge summary. Risk Factors/Clinical Indicators/Treatments progress note 07/08/21 states: on admission, patient had a stage 2 decubitus CDS: Vivian Phipps RN Contact Number: [phone] Please Review the information above and exercise your independent professional judgment in responding to the query. If you concur, pleas document in the PROGRESS NOTES and DISCHARGE SUMMARY. If you do not agree with the query, please document in the query above. THIS QUERY IS PART OF THE PERMANENT MEDICAL RECORD Documented by User: August An MD 07/29/21 07:59 Retrospective Query Provider Response: Other (Stage 2 decubitus, right buttocck)
== END 2021-07-13 00:14 | disposition expired | DRG 177 ==
LOC: HO.ED 17:11 → HO.ICU 17:59
PROVIDERS: Anesthesiology; Physician Assistant Medical; Registered Nurse Community Health; Admitting Provider Internal Medicine Pulmonary Disease; Emergency Provider Emergency Medicine Emergency Medical Services; PCP Internal Medicine; Visit Provider Internal Medicine Pulmonary Disease
DX: U07.1 COVID-19 (principal); J12.82 Pneumonia due to coronavirus disease 2019; J80 Acute respiratory distress syndrome; N17.9 Acute kidney failure, unspecified; K44.9 Diaphragmatic hernia without obstruction or gangrene; Z86.718 Personal history of other venous thrombosis and embolism; R73.9 Hyperglycemia, unspecified; L89.312 Pressure ulcer of right buttock, stage 2; T38.0X5A Adverse effect of glucocorticoids and synthetic analogues, initial encounter; Y92.239 Unspecified place in hospital as the place of occurrence of the external cause; Z95.0 Presence of cardiac pacemaker; Z79.51 Long term (current) use of inhaled steroids; Z79.899 Other long term (current) drug therapy; Z66 Do not resuscitate
CPT/HCPCS: 36415; 71045; 71275; 80048; 80053; 80076; 82040; 82728; 82803; 82947; 83605; 83615; 83735; 83880; 84100; 84145; 84300; 85025; 85027; 85379; 85610; 85730; 86140; 87040; 87147; 87205; 93308; 94660; 96365; 96375; 99285; 99291; 99292; C1758; J1100; J1170; J2060; J2930; J3010; J3411; P9047; Q9967